=== PATIENT | male | born 1960 | race Caucasian/White ===

== ENCOUNTER 2024-08-02 22:59 | Inpatient (IN) | payer MEDICARE ==
[~2024-08-02] VITALS: Ht 172.7 cm; Wt 79.2 kg
[~2024-08-02 22:59] MED LIST: CARV3.1240 PO; DAPA1TAB4 PO; DICL50TA2 PO; FAMO20TA10 PO; METO-281 PO; SACU1TAB7 PO; TAMS0.4C39 PO
--- NOTE | 2024-08-02 23:14 | ED.PDOC ---
History of Present Illness HPI Comments 64-year-old male brought in by EMS presents with a chief complaint of generalized weakness times onset today. EMS reports that this is the 2nd call to patients home today. Patient reports that he suffers from anxiety and panic attacks when he starts to feel weakness. Patient states that he self medicates with marijuana in the usually helps him however he reports that it has not been helping him. Patient states that he lost his 6 months ago in the has been a trigger for his anxiety and panic attacks. Patient has no stated complaints at this time. Vital signs were stable at arrival. Time Seen by MD: 23:02 Reviewed Notes: Nurses Notes, Medications, Allergies Allergies: Coded Allergies: NO KNOWN ALLERGIES (Unverified , 01/07/15) Home Meds Active Scripts Famotidine (PEPCID TABLET) 20 Mg Tb, 1 TAB PO BID for 30 Days, #60 TAB 5 Refills Prov:AMY TEIXEIRA MD 04/16/24 Metoclopramide Hcl (Reglan) 10 Mg Tab, 10 MG PO TID PRN for 10 Days, #30 TAB Prov:AMY TEIXEIRA MD 04/16/24 Diclofenac Potassium (Diclofenac Potassium) 50 Mg Tab, 1 TAB PO TIDP for 10 Days, #30 TAB Prov:AMY TEIXEIRA MD 04/16/24 Information Source: Patient, Emergency Med Personnel Mode of Arrival: EMS Severity: Moderate Timing: Hours Duration: Since onset Prehospital treatment: None Past Medical History PAST MEDICAL HISTORY: CHF, DM, HTN Surgical History: Denies all surgeries Family History Family History: Unobtainable Social History Smoker: Non-Smoker Alcohol: Denies ETOH Use Drugs: Denies Drug Use Lives In: Home Constitutional: reports: fatigue, weakness; denies: chills, diaphoresis, fever, malaise, sweats, others EENTM: denies: blurred vision, double vision, ear bleeding, ear discharge, ear drainage, ear pain, ear ringing, eye pain, eye redness, hearing loss, mouth pain, mouth swelling, nasal discharge, nose bleeding, nose congestion, nose pain, photophobia, tearing, throat pain, throat swelling, voice changes, others Respiratory: denies: cough, hemoptysis, orthopnea, SOB at rest, shortness of breath, SOB with excertion, stridor, wheezing, others Cardiovascular: denies: chest pain, dizzy spells, diaphoresis, Dyspnea on exertion, edema, irregular heart beat, left arm pain, lightheadedness, palpitations, PND, syncope, others Gastrointestinal: denies: abdomen distended, abdominal pain, blood streaked bowels, constipated, diarrhea, dysphagia, difficulty swallowing, hematemesis, melena, nausea, poor appetite, poor fluid intake, rectal bleeding, rectal pain, vomiting, others Genitourinary: denies: burning, dysuria, flank pain, frequency, hematuria, incontinence, penile discharge, penile sore, pain, testicle pain, testicle swelling, urgency, others Neurological: denies: dizziness, fainting, headache, left sided numbness, left sided weakness, numbness, paresthesia, pre-existing deficit, right sided numbness, right sided weakness, seizure, speech problems, tingling, tremors, weakness, others Musculoskeletal: denies: back pain, gout, joint pain, joint swelling, muscle pain, muscle stiffness, neck pain, others Integumetry: denies: bruises, change in color, change in hair/nails, dryness, laceration, lesions, lumps, rash, wounds, others Allergic/Immunocompromised: denies: Difficulty Healing, Frequent Infections, Hives, Itching, others Hematologic/Lymphatic: denies: anemia, blood clots, easy bleeding, easy bruising, swollen glands, others Endocrine: denies: excessive hunger, excessive sweating, excessive thirst, excessive urination, flushing, intolerance to cold, intolerance to heat, unexplained weight gain, unexplained weight loss, others Psychiatric: reports: anxiety; denies: bipolar disorder, depression, hopeless, panic disorder, schizophrenia, sleepless, suicidal, others All Other Systems: Reviewed and Negative Physical Exam General Appearance: Moderate Distress (Patient appears to be in mild distress due to anxiety and general illness. Patient appears to be in poor overall health.), Normal HEENT: Normal ENT Inspection, Pharynx Normal, TMs Normal Neck: Full Range of Motion, Non-Tender, Normal, Normal Inspection Respiratory: Chest Non-Tender, Lungs Clear, No Accessory Muscle Use, No Respiratory Distress, Normal Breath Sounds Cardiovascular: No Edema, No JVD, No Murmur, No Gallop, Normal Peripheral Pulses, Regular Rate/Rhythm Breast Exam: Deferred Gastrointestinal: No Pulsatile Mass, Normal Bowel Sounds, Soft Genitalia: Deferred Pelvic: Deferred Rectal: Deferred Extremities: No calf tenderness, Normal capillary refill, Normal range of motion, Non-tender, No pedal edema Musculoskeletal : Apperance: Normal Neurologic: Alert, No Motor Deficits, No Sensory Deficits Cerebellar Function: Normal Reflexes: Normal Skin: Dry, Normal Color, Warm Lymphatic: No Adenopathy Was a procedure done? Was a procedure done?: No Differential Dx Considerations may include: Sepsis, electrolyte abnormality, anxiety, UTI, acute coronary syndrome X-Ray, Labs, Meds, VS Vital Signs Date Time Temp Pulse Resp B/P (MAP) Pulse Ox O2 Delivery O2 Flow Rate FiO2 08/02/24 23:20 98.6 88 16 119/66 (83) 96 98.6 08/02/24 23:20 88 16 96 Room Air* 0 21 08/02/24 23:00 98.0 92 20 118/78 (91) 98 98.0 Lab Test 08/02/24 23:25 Range/Units White Blood Count 28.0 H 4.4-10.8 10^3/uL Red Blood Count 4.94 4.5-5.90 10^6/uL Hemoglobin 14.9 13.5-17.5 g/dL Hematocrit 43.0 41.0-53.0 % Mean Corpuscular Volume 87.1 80.0-100.0 fL Mean Corpuscular Hemoglobin 30.1 28.0-32.0 pg Mean Corpuscular Hemoglobin Concent 34.6 32.0-36.0 g/dL Red Cell Distribution Width 13.3 11.8-14.3 % Platelet Count 310 140-450 10^3/uL Mean Platelet Volume 8.0 6.9-10.8 fL Neutrophils (%) (Auto) 37.0-80.0 % Lymphocytes (%) (Auto) 10.0-50.0 % Monocytes (%) (Auto) 0.0-12.0 % Basophils (%) (Auto) 0.0-2.0 % Neutrophils # (Auto) 1.6-8.6 10 ^3/uL Lymphocytes # (Auto) 0.4-5.4 10 ^3/uL Monocytes # (Auto) 0-1.3 10 ^3/uL Differential Total Cells Counted 100.0 100 Neutrophils % (Manual) 89 H 37.0-80.0 Band Neutrophils % (Manual) 1 Lymphocytes % (Manual) 7 L 10.0-50.0 Monocytes % (Manual) 3 0-12 Eosinophils % (Manual) 0 0-7 Basophils % (Manual) 0 0.0-2.0 Metamyelocytes % (manual) 0 Myelocytes % (Manual) 0 Promyelocytes % (Manual) 0 Blast Cells % (Manual) 0 Reactive Lymphocytes 0 Platelet Estimate Adequate Sodium Level 137 136-145 mmol/L Potassium Level 4.5 3.5-5.1 mmol/L Chloride Level 100 98-107 mmol/L Carbon Dioxide Level 26 20-31 mmol/L Anion Gap 11 5-15 Blood Urea Nitrogen 12 9-23 mg/dL Creatinine 1.16 0.700-1.30 mg/dL Glomerular Filtration Rate Calc 69 >90 mL/min BUN/Creatinine Ratio 10.3 10.0-20.0 Serum Glucose 110 H 74-106 mg/dL Calcium Level 9.5 8.7-10.4 mg/dL Troponin I High Sensitivity 33 </=54 ng/L Current Medications Medications (Trade) Dose Ordered Sig/Cady Route Start Time Stop Time Status Last Admin Alprazolam (Xanax Tablet) 1 mg ONCE ONCE PO 08/02/24 23:15 08/02/24 23:16 DC 08/02/24 23:25 X-Ray, Labs, Meds, VS Comment All resulted laboratories were reviewed by me personally. Urine was pending at time of this note. Patient's laboratories [place] [id number]. Patient's anxiety was difficult to manage while at the facility. Patient will be admitted for IV antibiotics to address his leukocytosis as well as possible tele psych evaluation to address his depression and anxiety. Time of 1ST Reevaluation: 00:53 Reevaluation 1ST: Unchanged Consultation: PCP, Psychiatry Patient Education/Counseling: Diagnosis, Treatment, Prognosis Family Education/Counseling: Diagnosis, Treatment, No Family Present Departure 1 Departure Time of Disposition: 00:54 Impression: Primary Impression: Leukocytosis Additional Impression: Anxiety Disposition: 09 ADMITTED INPATIENT Condition: Fair Discharged With: Self Critical Care Note Critical Care Time?: No Stability Stability form required: No Heart Score Heart Score: Heart Score Response (Comments) Value History N/A 0 EKG N/A 0 Age N/A 0 Risk Factors N/A 0 Troponin N/A 0 Total 0 I personally scribed for MAGNUS GENTILE PAC ([email or web address]) on 08/02/24 at 23:14. Elect ronically submitted by Nahid Whitehead ([email or web address]). MAGNUS GENTILE PAC Aug 02, 2024 23:14
[2024-08-02 23:20] VITALS: PULSE 88; RESP 16; O2SAT 96
[2024-08-02] MEDS: ALPRAZolam 0.5 MG TAB PO ONE (23:25)
[2024-08-02 23:59] LABS: Hemoglobin 14.9 g/dL (13.5-17.5); Mean Corpuscular Hemoglobin 30.1 pg (28.0-32.0); Mean Corpuscular Hgb Conc. 34.6 g/dL (32.0-36.0); Mean Corpuscular Volume 87.1 fL (80.0-100.0); Platelet Count (auto) 310 10^3/uL (140-450); Red Blood Cells 4.94 10^6/uL (4.5-5.90); Red Cell Distribution Width 13.3 % (11.8-14.3)
[2024-08-03] LABS: Basophils % (manual) 0 (0.0-2.0); Blast Cells 0; Eosinophils % (manual) 0 (0-7); Metamyelocytes % 0; Myelocytes % 0; Promyelocytes % 0; Reactive Lymphocytes 0
[2024-08-03 00:01] LABS: Chloride 100 mmol/L (98-107); Potassium 4.5 mmol/L (3.5-5.1); Sodium 137 mmol/L (136-145)
[2024-08-03 00:02] LABS: Anion Gap 11 (5-15); Calcium 9.5 mg/dL (8.7-10.4); Carbon Dioxide 26 mmol/L (20-31)
[2024-08-03 00:07] LABS: BUN/Creatinine Ratio 10.3 (10.0-20.0); Blood Urea Nitrogen 12 mg/dL (9-23)
[2024-08-03 00:09] LABS: Glucose 110 mg/dL (74-106)
[2024-08-03 00:44] LABS: Band Neutrophils % (manual) 1; Lymphocytes % (manual) 7 (10.0-50.0); Monocytes % (manual) 3 (0-12); Platelet Estimate Adequate
[2024-08-03] MEDS: cefTRIAXone 1GM/50ML D5W 50 ML IV ONE (01:48)
[2024-08-03 02:05] VITALS: PULSE 87; RESP 33; O2SAT 96
[2024-08-03] MEDS: LORazepam 2MG/ML-1ML VIAL IM ONE (02:26)
[2024-08-03 07:30] VITALS: PULSE 87; RESP 20; O2SAT 96
[2024-08-03] MEDS ORDERED: ONDANSETRON HCL 4 MG/2 ML VIAL IV PRN (07:45)
[2024-08-03] MEDS ORDERED: MORPHINE SULFATE INJ 2 MG/ml SYRG IV PRN (07:45)
--- NOTE | 2024-08-03 07:47 | DVH ---
XY CHEST PORTABLE, HISTORY: Leukocytosis COMPARISON: XY CHEST PORTABLE on DOS: 04/16/24 XY CHEST PORTABLE on DOS: 04/16/24 TECHNICAL DATA: 1 view of the chest was obtained. FINDINGS: Lines and tubes: None Cardiomediastinal silhouette: normal Pulmonary vasculature: normal Lung expansion: low Lung airspace: normal Lung interstitium: normal Pleura: normal Pneumothorax: no Bones: Unremarkable Other: no IMPRESSION: No acute intrathoracic abnormality.
[2024-08-03 08:21] LABS: Urine Bacteria None Seen /hpf (None Seen)
[2024-08-03] MEDS ORDERED: DEXTROSE (50%) 50ML SYRG IV PRN (08:45)
[2024-08-03] MEDS ORDERED: FAMO-12 PO (08:46)
[2024-08-03 08:48] LABS: Urine Blood Negative /uL (Negative); Urine Clarity Clear (Clear); Urine Color Yellow (Yellow); Urine Protein, UAD TRACE (Negative); Urine Specific Gravity 1.026 (1.001-1.035); Urine Squamous Epithelial Cell None Seen /hpf (<5); Urine Urobilinogen 2 mg/dL (Negative); Urine WBC 2 /HPF (0-3)
--- NOTE | 2024-08-03 08:53 | DVHHP2 ---
History of Present Illness Reason for Visit: Generalized weakness History of Present Illness This 64-year-old male with past medical history of CHF, diabetes, hypertension, presents to the ED via EMS with a chief complaint of generalized weakness. The patient reports have been stress, anxious, and depressed for the past six months after spouse . The patient states has not been eating due to no appetite. The patient denies dizziness, chest pain, shortness of breath, abdominal pain, or other acute symptoms. Past Medical History As stated in HPI Past Surgical History Denies Family History Reviewed, non-contributory to the management of this case. Past Social History The patient lives at home, denies smoking, alcohol or illicit drugs abuse. Review of Systems Constitutional: Yes: Weakness; No: Fever, Chills, Sweats, Malaise, Other Eyes: No: Pain, Vision change, Conjunctivae inflammation, Eyelid inflammation, Other, Redness ENT: No: Ear pain, Ear discharge, Nose pain, Nose discharge, Nose congestion, Mouth pain, Mouth swelling, Throat pain, Throat swelling, Other Respiratory: No: Cough, Dry, Shortness of breath, SOB with excertion, Wheezing, Hemoptysis, Pleuritic Pain, Sputum, Wheezing, Other Cardiovascular: No: Chest Pain, Palpitations, Orthopnea, Paroxysmal Noc. Dyspnea, Edema, Lt Headedness, Other Gastrointestinal: No: Nausea, Vomiting, Abdominal Pain, Diarrhea, Constipation, Melena, Hematochezia, Other Genitourinary: No Dysuria, No Frequency, No Incontinence, No Hematuria, No Retention, No Other Musculoskeletal: No: other, neck pain, shoulder pain, arm pain, back pain, hand pain, leg pain, foot pain Neurological: No: Weakness, Numbness, Incoordination, Change in speech, Confusion, Seizures, Other Allergies: Coded Allergies: NO KNOWN ALLERGIES (Unverified , 01/07/15) Medications Current Medications Medications Dose Ordered Sig/Cady Route Start Time Stop Time Status Last Admin Dose Admin Acetaminophen/ Hydrocodone Bitart 1 tab Q4HP PRN PO 08/03/24 07:45 Ondansetron HCl 4 mg Q4HP PRN IV 08/03/24 07:45 Enoxaparin Sodium 30 mg DAILY SC 08/03/24 10:00 Acetaminophen 650 mg Q6HP PRN PO 08/03/24 07:45 Morphine Sulfate 2 mg Q4HPRN PRN IV 08/03/24 07:45 Exam Vital Signs Vital Signs Date Time Temp Pulse Resp B/P (MAP) Pulse Ox O2 Delivery O2 Flow Rate FiO2 08/03/24 08:00 85 08/03/24 07:30 20 96 Nasal Cannula* 2 28 08/03/24 07:30 99.0 119/61 (80) 99.0 General Appearance: Alert, Oriented X3, Cooperative, mild distress HEENT: Atraumatic, PERRLA, Mucous membr. moist/pink Respiratory: Clear to auscultation, Normal air movement Cardiovascular: Regular rate, Normal S1, Normal S2 Abdominal: Normal bowel sounds, Soft, No tenderness Extremities: No clubbing, No cyanosis, No edema, Normal pulses Skin: No rashes, No breakdown, No significant lesion Neuro: Normal speech, Normal tone Psych/Mental Status: Mental status NL Labs/Xrays Labs Test 08/03/24 08:15 08/03/24 01:14 08/02/24 23:25 Range/Units Lactic Acid Level 1.4 0.4-2.0 mmol/L White Blood Count 28.0 H 4.4-10.8 10^3/uL Red Blood Count 4.94 4.5-5.90 10^6/uL Hemoglobin 14.9 13.5-17.5 g/dL Hematocrit 43.0 41.0-53.0 % Mean Corpuscular Volume 87.1 80.0-100.0 fL Mean Corpuscular Hemoglobin 30.1 28.0-32.0 pg Mean Corpuscular Hemoglobin Concent 34.6 32.0-36.0 g/dL Red Cell Distribution Width 13.3 11.8-14.3 % Platelet Count 310 140-450 10^3/uL Mean Platelet Volume 8.0 6.9-10.8 fL Neutrophils (%) (Auto) 37.0-80.0 % Lymphocytes (%) (Auto) 10.0-50.0 % Monocytes (%) (Auto) 0.0-12.0 % Basophils (%) (Auto) 0.0-2.0 % Neutrophils # (Auto) 1.6-8.6 10 ^3/uL Lymphocytes # (Auto) 0.4-5.4 10 ^3/uL Monocytes # (Auto) 0-1.3 10 ^3/uL Differential Total Cells Counted 100.0 100 Neutrophils % (Manual) 89 H 37.0-80.0 Band Neutrophils % (Manual) 1 Lymphocytes % (Manual) 7 L 10.0-50.0 Monocytes % (Manual) 3 0-12 Eosinophils % (Manual) 0 0-7 Basophils % (Manual) 0 0.0-2.0 Metamyelocytes % (manual) 0 Myelocytes % (Manual) 0 Promyelocytes % (Manual) 0 Blast Cells % (Manual) 0 Reactive Lymphocytes 0 Platelet Estimate Adequate Sodium Level 137 136-145 mmol/L Potassium Level 4.5 3.5-5.1 mmol/L Chloride Level 100 98-107 mmol/L Carbon Dioxide Level 26 20-31 mmol/L Anion Gap 11 5-15 Blood Urea Nitrogen 12 9-23 mg/dL Creatinine 1.16 0.700-1.30 mg/dL Glomerular Filtration Rate Calc 69 >90 mL/min BUN/Creatinine Ratio 10.3 10.0-20.0 Serum Glucose 110 H 74-106 mg/dL Calcium Level 9.5 8.7-10.4 mg/dL Troponin I High Sensitivity 33 </=54 ng/L PROCEDURE(s): CXRP - CHEST PORTABLE REASON: Leukocytosis ORDER NUMBER(s): [id number], ACCESSION NUMBER(s): [id number] XY CHEST PORTABLE, HISTORY: Leukocytosis COMPARISON: XY CHEST PORTABLE on DOS: 04/16/24 XY CHEST PORTABLE on DOS: 04/16/24 TECHNICAL DATA: 1 view of the chest was obtained. FINDINGS: Lines and tubes: None Cardiomediastinal silhouette: normal Pulmonary vasculature: normal Lung expansion: low Lung airspace: normal Lung interstitium: normal Pleura: normal Pneumothorax: no Bones: Unremarkable Other: no IMPRESSION: No acute intrathoracic abnormality. 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 Tele Psych evaluation Monitor # diabetes type 2 Check A1c Farxiga Insulin sliding scale DVT prophylaxis Medical plan discussed with patient and RN Plan discussed with: Patient My Orders Orders - BANDAR DOMINGUEZ [employer] Procedure Category Date Status Time Urinalysis LAB 08/03/24 In Process 07:10 Communication Order ORDERS 08/03/24 Transmitted 07:10 Urine Bacterial NELSON 08/03/24 Logged Culture 07:10 Chest Portable XY 08/03/24 Resulted 07:10 Admit ADMIT 08/03/24 Transmitted 07:36 Code Status CODE 08/03/24 Transmitted 07:36 Hydrocodone-Acet PHA 08/03/24 In Process 5/325mg Tab ([place] 07:45 Ondansetron Hcl PHA 08/03/24 In Process (Zofran) 07:45 Fall Risk Precautions RAYRAY 08/03/[address] 07:36 Complete Blood Count LAB 08/04/24 Verified 04:00 Comprehensive LAB 08/04/24 Verified Metabolic Panel 04:00 Cardiac DIET 08/03/24 Transmitted Diet-2gna,Lofat,Lochol Breakfast Condition: Fair RAYRAY 08/03/24 In Process 07:36 Enoxaparin Sodium PHA 08/03/24 In Process (Lovenox) 10:00 Acetaminophen Tablet PHA 08/03/24 In Process (Tylenol Tablet) 07:45 Morphine Sulfate PHA 08/03/24 In Process Injection 07:45 Date of Service: Aug 03, 2024 Billing Provider: BANDAR DOMINGUEZ Common Visit Codes: [id number] INP/OBS CARE (HIGH) BANDAR DOMINGUEZ Aug 03, 2024 08:52
[2024-08-03 09:28] LABS: Cannabinoid Screen, Urine Pos (NEGATIVE)
[2024-08-03 09:30] LABS: LDL Cholesterol 52 mg/dL (< 100); Triglycerides 90 mg/dL (< 150)
[2024-08-03 09:32] LABS: Cholesterol 105 mg/dL (< 200); HDL Cholesterol 36 mg/dL (40-59)
[2024-08-03 09:32] LABS: Amphetamine Screen, Urine Neg (NEGATIVE); Barbiturate Scree,Urine Neg (NEGATIVE); Benzodiazephine Screen, Urine Pos (NEGATIVE); Cocaine Screen, Urine Neg (NEGATIVE); Opiate Scree,Urine Neg (NEGATIVE); Phencyclidine Screen, Urine Neg (NEGATIVE)
[2024-08-03 10:36] VITALS: BP 112/81; PULSE 76; RESP 18; TEMP 97.7; O2SAT 97
[2024-08-03] MEDS: SODIUM CHLORIDE 0.9% 2,050 ML IV ONE (10:54)
[2024-08-03] MEDS: cefTRIAXone 1GM/50ML D5W 50 ML IV SCH (10:54)
[2024-08-03] MEDS: FAMOTIDINE 20 MG TAB PO SCH (10:55)
[2024-08-03] MEDS: ENOXAPARIN SOD 30 MG/0.3 ML SYRINGE SC SCH (10:55)
[2024-08-03] MEDS: HYDROcodone-ACET 5/325MG TAB PO PRN (10:56)
[2024-08-03] MEDS: ACCU-CHEK COMFORT CURVE STRIP VI SCH (11:12)
[2024-08-03] MEDS: InsuLIN REG 1unit/0.01ml Soln (100units/ml) SC SCH (11:12)
[2024-08-03 11:53] VITALS: PULSE 78; RESP 18; O2SAT 97
--- NOTE | 2024-08-03 14:59 | DVHSR ---
APPROVED REPORT EXAM: LIMITED Two-dimensional and M-mode echocardiogram with Doppler and color Doppler. Blood Pressure: 119/61 mmHg INDICATION CHF RISK FACTORS Height: 5' 8", Weight: 178 DIMENSIONS LVDd4.4 (3.8-5.7cm)LA (2D)3.7 (1.9-4.0cm)Aortic Root2.7 (2.0-3.7cm) LVDs2.7 (2.5-4.0cm)LA (MM) (1.9-4.0cm)Aortic Cusp Exc2.0 (1.5-2.0cm) EF (%) 68.0 (55-70%)Rt. Atrium4.1 (1.9-4.0cm)Asc. Aorta cm IVSd1.1 (0.7-1.1cm)RV (D) (1.8-2.4cm) PWd1.1 (0.7-1.1cm) Mitral Valve MitralMitral Stenosis E wave0.70m/sMV Mean GR.mmHg A wave1.10m/sMV Peak GR.mmHg E/A ratio0.62D MVAcm2 Aortic Valve Aortic ValveAortic Stenosis V11.00m/Eileen Mean GR.6mmHg V21.60m/Eileen Peak GR.11mmHg LVOT Diameter2.2 (1.8-2.4cm)Doppler AVA2.37cm2 Tricuspid Valve TR Velocity2.10m/s [id number] Other Information Quality : Technically LimitedRhythm : Technically limited study due to patient very anxious and moving. Conclusion Technically good study. Sinus rhythm. Right atrial and right ventricular enlargement. Mild dilation of the sinuses of Valsalva. Mild aortic sclerosis. Left ventricular function is preserved at 60% with normal RV function. Dopplers unremarkable. Mild TR. No pericardial effusion masses or vegetations.
[2024-08-03 16:43] VITALS: BP 126/77; PULSE 68; RESP 17; TEMP 98; O2SAT 98
[2024-08-03 21:00] VITALS: BP 145/74; PULSE 65; RESP 16; TEMP 97.9; O2SAT 96
[2024-08-04] VITALS (8 sets, daily range): BP systolic 121–155; BP diastolic 71–81; PULSE 54–66; RESP 14–19; TEMP 97.5–98.6; O2SAT 97–99
[2024-08-04 07:01] LABS: Basophils # (auto) 0 10 ^3/uL (0-0.2); Basophils % (auto) 0.4 % (0.0-2.0); Eosinophils # (auto) 0 10 ^3/uL (0-0.8); Hematocrit 41.4 % (41.0-53.0); Hemoglobin 14.3 g/dL (13.5-17.5); Lymphocytes # (auto) 0.9 10 ^3/uL (0.4-5.4); Lymphocytes % (auto) 7.9 % (10.0-50.0); Mean Corpuscular Hemoglobin 30.3 pg (28.0-32.0); Mean Corpuscular Hgb Conc. 34.5 g/dL (32.0-36.0); Mean Corpuscular Volume 87.6 fL (80.0-100.0); Monocytes # (auto) 0.9 10 ^3/uL (0-1.3); Monocytes % (auto) 8.1 % (0.0-12.0); Neutrophils # (auto) 9.5 10 ^3/uL (1.6-8.6); Neutrophils % (auto) 83.6 % (37.0-80.0); Platelet Count (auto) 245 10^3/uL (140-450); Red Blood Cells 4.72 10^6/uL (4.5-5.90); Red Cell Distribution Width 13.2 % (11.8-14.3); White Blood Cell 11.4 10^3/uL (4.4-10.8)
[2024-08-04 07:22] LABS: Alanine Aminotransferase 13 U/L (7-40); Albumin 4.2 g/dL (3.2-4.8); Alkaline Phosphatase 105 U/L (46-116); Anion Gap 8 (5-15); Aspartate Aminotransferase 18 U/L (13-40); BUN/Creatinine Ratio 22.1 (10.0-20.0); Blood Urea Nitrogen 19 mg/dL (9-23); Calcium 9.5 mg/dL (8.7-10.4); Carbon Dioxide 27 mmol/L (20-31); Total Protein 6.9 g/dL (5.7-8.2)
[2024-08-04 07:23] LABS: Bilirubin, Total 0.5 mg/dL (0.2-1.0)
[2024-08-04 07:25] LABS: Chloride 106 mmol/L (98-107); Glucose 116 mg/dL (74-106); Potassium 4.4 mmol/L (3.5-5.1); Sodium 141 mmol/L (136-145)
--- NOTE | 2024-08-04 11:39 | DVHPN2 ---
Subjective Patient continues to report having anxiety and generalized weakness. Reviewed: Care Plan, H&P, Labs, Medications, Previous Orders, Radiology Changes from previous H/P or p: No Changes General: Per HPI Eyes: No Pain, No Vision change, No Conjunctivae inflammation, No Eyelid inflammation, No Other, No Redness ENT: No Ear pain, No Ear discharge, No Nose pain, No Nose discharge, No Nose congestion, No Mouth pain, No Mouth swelling, No Throat pain, No Throat swelling, No Other Cardiovascular: No Chest Pain, No Palpitations, No Orthopnea, No Paroxysmal Noc. Dyspnea, No Edema, No Lt Headedness, No Other Respiratory: No Cough, No Dry, No Shortness of breath, No SOB with excertion, No Wheezing, No Hemoptysis, No Pleuritic Pain, No Sputum, No Other Gastrointestinal: No Nausea, No Vomiting, No Abdominal Pain, No Diarrhea, No Constipation, No Melena, No Hematochezia, No Other Genitourinary: No Dysuria, No Frequency, No Incontinence, No Hematuria, No Retention, No Other Musculoskeletal: No other, No neck pain, No shoulder pain, No arm pain, No back pain, No hand pain, No leg pain, No foot pain Objective Vitals Vital Signs Date Time Temp Pulse Resp B/P (MAP) Pulse Ox O2 Delivery O2 Flow Rate FiO2 08/04/24 09:00 98.3 66 18 149/75 (99) 98 98.3 08/03/24 11:53 Room Air* 0 21 Intake/Output Intake and Output 08/04/24 07:00 Intake Total 850 ml Output Total 980 ml Balance -130 ml Intake Oral 850 ml Output Urine Total 980 ml General Appearance: Alert, Oriented X3, Cooperative, No acute distress, mild distress HEENT: Atraumatic, PERRLA Cardiovascular: Normal S1, Normal S2 Abdomen: Normal bowel sounds, Soft, No tenderness, No hepatospenomegaly Musculoskeletal: Normal sensory function, Normal motor function Skin: Dry, Intact Psych/Mental Status: Mental status NL, Mood NL Medications Current Medications Medications Dose Ordered Sig/Cady Route Start Time Stop Time Status Last Admin Dose Admin Acetaminophen/ Hydrocodone Bitart 1 tab Q4HP PRN PO 08/03/24 07:45 08/04/24 09:19 1 TAB Ondansetron HCl 4 mg Q4HP PRN IV 08/03/24 07:45 Enoxaparin Sodium 30 mg DAILY SC 08/03/24 10:00 08/04/24 09:17 30 MG Acetaminophen 650 mg Q6HP PRN PO 08/03/24 07:45 Morphine Sulfate 2 mg Q4HPRN PRN IV 08/03/24 07:45 Ceftriaxone Sodium 50 ml @ 100 mls/hr DAILY@09 IV 08/03/24 09:00 08/04/24 09:16 100 MLS/HR Diagnostic Test (Pha) 1 strip ACHS 08/03/24 11:30 08/04/24 04:49 1 STRIP Insulin Human Regular ACHS SC 08/03/24 11:30 Dextrose 50 ml UD PRN IV 08/03/24 08:45 Famotidine 20 mg BID PO 08/03/24 10:00 08/04/24 09:32 20 MG Laboratory Results Laboratory Tests 08/04/24 06:03 Chemistry Test 08/04/24 06:03 Albumin 4.2 g/dL (3.2-4.8) Calcium Level 9.5 mg/dL (8.7-10.4) Total Protein 6.9 g/dL (5.7-8.2) LFT Test 08/04/24 06:03 Alanine Aminotransferase (ALT) 13 U/L (7-40) Alkaline Phosphatase 105 U/L (46-116) Aspartate Amino Transferase (AST) 18 U/L (13-40) Total Bilirubin 0.5 mg/dL (0.2-1.0) Urinalysis Test 08/03/24 08:15 Urine Color Yellow (Yellow) Urine Clarity Clear (Clear) Urine pH 6.0 (5.0-9.0) Urine Specific [place] 1.026 (1.001-1.035) Urine Protein Trace (Negative) H Urine Ketones Negative (Negative) Urine Blood Negative /uL (Negative) Urine Nitrite Negative (Negative) Urine Bilirubin Negative (Negative) Urine Urobilinogen 2 mg/dL (Negative) H Urine Leukocyte Esterase Negative /uL (Negative) Urine RBC 2 /hpf (0 - 3) Urine Microscopic WBC 2 /HPF (0-3) Urine Squamous Epithelial Cells None seen /hpf (<5) Urine Bacteria None seen /hpf (None Seen) Urine Glucose Normal mg/dL (Normal) Microbiology Microbiology Date/Time Source Procedure Growth Status 08/03/24 08:15 Voided Urine Urine Culture - Preliminary Resulted 08/03/24 01:43 Blood Blood Culture - Preliminary NO GROWTH AFTER 24 HOURS OF INCUBATION. Resulted Labs and/or images reviewed: Labs reviewed by me, Image(s) reviewed by me Assessment/Plan Assessment/Plan Impression: -leukocytosis, rule out sepsis -anxiety disorder -marijuana use -rule out major depressive disorder -medication noncompliance -history of primary hypertension Plan: -continue IV antibiotic therapy -gentle IV hydration -kelly cultures -PUD, DVT prophylaxis -psychiatry consultation -repeat labs in a.m. Total time spent with patient discussing and formulating plan of care: 35 minutes. This medical document was created using an electronic medical record system with [employer] dictation system. Although this document has been carefully reviewed, there may still be some phonetic and typographical errors. These areas are purely typographical due to imperfections of the software programs, and do not reflect any compromise in the patient's medical care. Plan discussed with: Patient, Other (RN) Date of Service: Aug 04, 2024 Billing Provider: ALLAN HUNTER NP Common Visit Codes: [id number] INP/OBS CARE(HIGH) ALLAN HUNTER NP Aug 04, 2024 11:39
--- NOTE | 2024-08-04 14:22 | DVHINCON2 ---
Date of Service if different f: Aug 04, 2024 Time of Service: 13:56 Consultation ([facility]) Consulting Physician: BACILIO LEIGH MD Labs Laboratory Tests Test 08/02/24 23:25 08/03/24 01:14 08/03/24 08:15 08/03/24 08:51 Differential Total Cells Counted 100.0 (100) Neutrophils % (Manual) 89 (37.0-80.0) Band Neutrophils % (Manual) 1 Lymphocytes % (Manual) 7 (10.0-50.0) Monocytes % (Manual) 3 (0-12) Eosinophils % (Manual) 0 (0-7) Basophils % (Manual) 0 (0.0-2.0) Metamyelocytes % (manual) 0 Myelocytes % (Manual) 0 Promyelocytes % (Manual) 0 Blast Cells % (Manual) 0 Reactive Lymphocytes 0 Platelet Estimate Adequate Troponin I High Sensitivity 33 ng/L (</=54) Lactic Acid Level 1.4 mmol/L (0.4-2.0) Urine Color Yellow (Yellow) Urine Clarity Clear (Clear) Urine pH 6.0 (5.0-9.0) Urine Specific [facility] 1.026 (1.001-1.035) Urine Protein Trace (Negative) Urine Ketones Negative (Negative) Urine Blood Negative /uL (Negative) Urine Nitrite Negative (Negative) Urine Bilirubin Negative (Negative) Urine Urobilinogen 2 mg/dL (Negative) Urine Leukocyte Esterase Negative /uL (Negative) Urine RBC 2 /hpf (0 - 3) Urine Microscopic WBC 2 /HPF (0-3) Urine Squamous Epithelial Cells None seen /hpf (<5) Urine Bacteria None seen /hpf (None Seen) Urine Glucose Normal mg/dL (Normal) Urine Opiates Screen Neg (NEGATIVE) Urine Fentanyl Screen Neg (NEGATIVE) Urine Barbiturates Screen Neg (NEGATIVE) Urine Phencyclidine Screen Neg (NEGATIVE) Urine Amphetamines Screen Neg (NEGATIVE) Urine Benzodiazepines Screen Pos (NEGATIVE) Urine Cocaine Screen Neg (NEGATIVE) Urine Cannabinoids Screen Pos (NEGATIVE) Hemoglobin A1c 4.9 % A1C (<5.7) Triglycerides Level 90 mg/dL (< 150) Cholesterol Level 105 mg/dL (< 200) LDL Cholesterol 52 mg/dL (< 100) HDL Cholesterol 36 mg/dL (40-59) Thyroid Stimulating Hormone (TSH) 0.41 uIU/mL (0.55-4.78) Test 08/04/24 06:03 08/04/24 11:42 White Blood Count 11.4 10^3/uL (4.4-10.8) Red Blood Count 4.72 10^6/uL (4.5-5.90) Hemoglobin 14.3 g/dL (13.5-17.5) Hematocrit 41.4 % (41.0-53.0) Mean Corpuscular Volume 87.6 fL (80.0-100.0) Mean Corpuscular Hemoglobin 30.3 pg (28.0-32.0) Mean Corpuscular Hemoglobin Concent 34.5 g/dL (32.0-36.0) Red Cell Distribution Width 13.2 % (11.8-14.3) Platelet Count 245 10^3/uL (140-450) Mean Platelet Volume 7.8 fL (6.9-10.8) Neutrophils (%) (Auto) 83.6 % (37.0-80.0) Lymphocytes (%) (Auto) 7.9 % (10.0-50.0) Monocytes (%) (Auto) 8.1 % (0.0-12.0) Eosinophils (%) (Auto) 0.0 % (0.0-7.0) Basophils (%) (Auto) 0.4 % (0.0-2.0) Neutrophils # (Auto) 9.5 10 ^3/uL (1.6-8.6) Lymphocytes # (Auto) 0.9 10 ^3/uL (0.4-5.4) Monocytes # (Auto) 0.9 10 ^3/uL (0-1.3) Eosinophils # (Auto) 0 10 ^3/uL (0-0.8) Basophils # (Auto) 0 10 ^3/uL (0-0.2) Nucleated Red Blood Cells 0.0 % Sodium Level 141 mmol/L (136-145) Potassium Level 4.4 mmol/L (3.5-5.1) Chloride Level 106 mmol/L (98-107) Carbon Dioxide Level 27 mmol/L (20-31) Anion Gap 8 (5-15) Blood Urea Nitrogen 19 mg/dL (9-23) Creatinine 0.86 mg/dL (0.700-1.30) Glomerular Filtration Rate Calc 96 mL/min (>90) BUN/Creatinine Ratio 22.1 (10.0-20.0) Serum Glucose 116 mg/dL (74-106) Calcium Level 9.5 mg/dL (8.7-10.4) Total Bilirubin 0.5 mg/dL (0.2-1.0) Aspartate Amino Transf (AST/SGOT) 18 U/L (13-40) Alanine Aminotransferase (ALT/SGPT) 13 U/L (7-40) Alkaline Phosphatase 105 U/L (46-116) Total Protein 6.9 g/dL (5.7-8.2) Albumin 4.2 g/dL (3.2-4.8) Bedside Glucose 115 mg/dl (70-106) Microbiology Date/Time Source Procedure Growth Status 08/03/24 08:15 Voided Urine Urine Culture - Preliminary Resulted 08/03/24 01:43 Blood Blood Culture - Preliminary NO GROWTH AFTER 24 HOURS OF INCUBATION. Resulted Appearance: Stated age Psychomotor activity: WNL Behavioral: Cooperative Eye contact: Appropriate Speech: WNL Affect: Appropriate, Mood Congruent Mood: Anxious Thought processes: Linear/Goal-directed Thought content: WNL Suicidal ideations: Absent Homicidal ideations: Absent Orientation: Person, Place, Time, Situation Memory intact: Recent Intellect: Average Abstractability: WNL Concentration: Adequate Attention: Adequate Judgement: WNL Insight: Good Vitals Vital Signs Date Time Temp Pulse Resp B/P (MAP) Pulse Ox O2 Delivery O2 Flow Rate FiO2 08/04/24 13:19 98.6 60 18 155/81 (105) 97 98.6 08/03/24 11:53 Room Air* 0 21 Current medications Current Medications Medications Dose Ordered Sig/Cady Route Start Time Stop Time Status Last Admin Dose Admin Acetaminophen/ Hydrocodone Bitart 1 tab Q4HP PRN PO 08/03/24 07:45 08/04/24 09:19 1 TAB Ondansetron HCl 4 mg Q4HP PRN IV 08/03/24 07:45 Enoxaparin Sodium 30 mg DAILY SC 08/03/24 10:00 08/04/24 09:17 30 MG Acetaminophen 650 mg Q6HP PRN PO 08/03/24 07:45 Morphine Sulfate 2 mg Q4HPRN PRN IV 08/03/24 07:45 Ceftriaxone Sodium 50 ml @ 100 mls/hr DAILY@09 IV 08/03/24 09:00 08/04/24 09:16 100 MLS/HR Diagnostic Test (Pha) 1 strip ACHS 08/03/24 11:30 08/04/24 11:30 1 STRIP Insulin Human Regular ACHS SC 08/03/24 11:30 Dextrose 50 ml UD PRN IV 08/03/24 08:45 Famotidine 20 mg BID PO 08/03/24 10:00 08/04/24 09:32 20 MG Treatment plan discussed: With staff Medication adjusted: Yes Labs ordered: No Psychotherapy provided: Yes Type: Voluntary History of Present Illness Reason for Consult : psychiatric evaluation PER H&P: This 64-year-old male with past medical history of CHF, diabetes, hypertension, presents to the ED via EMS with a chief complaint of generalized weakness. The patient reports have been stress, anxious, and depressed for the past six months after spouse . The patient states has not been eating due to no appetite. The patient denies dizziness, chest pain, shortness of breath, abdominal pain, or other acute symptoms. PSYCHIATRIST HPI: The patient was seen and evaluated at [facility] via telepsychiatry platform. 64 yr old male reported that he has been dealing with depression and anxiety since his 's 6 months ago. He reported he overthinks a lot of stuff, has difficulty attending to the moment. he feels like "My body is no in sync." He feels restless. He feels fatigued and agitated often. He sleeps okay and gets around 7 hrs sleep. He has low energy. Low motivation. He says he used to love his motorcycle, but found that he has lost interest in it. He denied having SI/HI/AVH. Past Psychiatric History : No past hospitalization, treatment or suicide attempt. Past Medical History : hypertension Current medications: not taking any medications (because they were over $500 each). NKDA Substance use: alcohol-last drank 07/08/79. Smokes MJ occasionally to help relax at night. Denied use of other substances. Social History : Lives in [place] with four grandchildren and has adopted 3 of them and in process of adopting them. He was 33 yrs and in 2023. 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 He may benefit from starting an SSRI to help reduce anxiety and help with depression. He does not warrant psychiatric hospitalization. Plan: 1. Safety. The patient is a low risk for self harm and may be managed as an outpatient. 2. Legal-voluntary. 3. Medications: Recommend starting Zoloft 50mg daily. Recommend discharging with prescription for thirty days and two refills. 4. Case discussed with DONALD Beltran. 5. Please recontact psychiatry for further follow up or reevaluation. Assessment/Diagnosis/Plan Reviewed: Labs, Medications, Previous Orders, Radiology BACILIO LEIGH MD Aug 04, 2024 13:52
[2024-08-04] MEDS: ACETAMINOPHEN 325 MG TAB PO PRN (18:36)
[2024-08-05] VITALS (8 sets, daily range): BP systolic 136–166; BP diastolic 79–91; PULSE 51–91; RESP 16–19; TEMP 97.6–98.5; O2SAT 95–99
[2024-08-05 07:57] LABS: Basophils # (auto) 0.1 10 ^3/uL (0-0.2); Eosinophils # (auto) 0 10 ^3/uL (0-0.8); Hematocrit 42.2 % (41.0-53.0); Hemoglobin 14.9 g/dL (13.5-17.5); Lymphocytes # (auto) 1.4 10 ^3/uL (0.4-5.4); Lymphocytes % (auto) 15.3 % (10.0-50.0); Mean Corpuscular Hemoglobin 30.6 pg (28.0-32.0); Mean Corpuscular Hgb Conc. 35.4 g/dL (32.0-36.0); Mean Corpuscular Volume 86.5 fL (80.0-100.0); Monocytes # (auto) 0.7 10 ^3/uL (0-1.3); Monocytes % (auto) 7.7 % (0.0-12.0); Neutrophils # (auto) 6.9 10 ^3/uL (1.6-8.6); Nucleated Red Blood Cells % 0.1 %; Platelet Count (auto) 279 10^3/uL (140-450); Red Blood Cells 4.87 10^6/uL (4.5-5.90); White Blood Cell 9.1 10^3/uL (4.4-10.8)
[2024-08-05] MEDS ORDERED: MORPHINE SULFATE INJ 2 MG/ml SYRG IV PRN (12:00)
--- NOTE | 2024-08-05 12:04 | DVHPN2 ---
Progress Note Date Seen: Aug 05, 2024 Medical Necessity Reason Pt with a Central, PICC or Fol: No Subjective Patient reports: No new complaints Review of Systems: HEENT:Normal, CVS:Normal, RESPIRATORY:Normal, GI:Normal, :Normal, MSK:Normal, NEURO:Normal Objective vital signs Vital Sign Date Time Temp Pulse Resp B/P (MAP) Pulse Ox O2 Delivery O2 Flow Rate FiO2 08/05/24 05:00 97.7 51 16 138/79 (98) 98 97.7 08/04/24 20:00 Room Air* 0 21 Total Intake and Output 08/04/24 08/04/24 08/05/24 15:00 23:00 07:00 Intake Total 50 ml 1200 ml 620 ml Output Total 600 ml Balance 50 ml 1200 ml 20 ml medications Current Medications Medications Dose Ordered Sig/Cady Route Start Time Stop Time Status Last Admin Dose Admin Acetaminophen/ Hydrocodone Bitart 1 tab Q4HP PRN PO 08/03/24 07:45 08/05/24 10:17 1 TAB Ondansetron HCl 4 mg Q4HP PRN IV 08/03/24 07:45 Enoxaparin Sodium 30 mg DAILY SC 08/03/24 10:00 08/05/24 08:57 30 MG Acetaminophen 650 mg Q6HP PRN PO 08/03/24 07:45 08/04/24 18:36 650 MG Morphine Sulfate 2 mg Q4HPRN PRN IV 08/03/24 07:45 Ceftriaxone Sodium 50 ml @ 100 mls/hr DAILY@09 IV 08/03/24 09:00 08/05/24 08:57 100 MLS/HR Diagnostic Test (Pha) 1 strip ACHS 08/03/24 11:30 08/05/24 06:15 1 STRIP Insulin Human Regular ACHS SC 08/03/24 11:30 Dextrose 50 ml UD PRN IV 08/03/24 08:45 Famotidine 20 mg BID PO 08/03/24 10:00 08/05/24 08:57 20 MG Examination: GENERAL:Normal, HEENT:Normal, NECK:Normal, LUNGS:Normal, CVS:Normal, ABDOMEN:Normal, MSK:Normal, SKIN:Normal, NEURO:Normal, :Normal laboratory and microbiology Laboratory Tests 08/05/24 07:12 08/04/24 06:03 Test 08/04/24 06:03 Range/Units Serum Glucose 116 H 74-106 mg/dL Microbiology Date/Time Source Procedure Growth Status 08/03/24 17:03 Nose MRSA Screen - Final Complete 08/03/24 08:15 Voided Urine Urine Culture - Preliminary Resulted 08/03/24 01:43 Blood Blood Culture - Preliminary NO GROWTH AFTER 48 HOURS OF INCUBATION. Resulted Problem List/Assessment/Plan Problem List/Assessment/Plan #1 sepsis ?uti: iv rocephin #2 bph: cont meds #3 dm: ssi #4 htn: lisinopril #5 chronic diastolic heart failure #6 tobacco abuse: advised to quit, nicotine patch- time spent 11 mins #7 anxiety/depression; zoloft advance care planning- full code- time spent 19 mins Plan discussed with: Patient My Orders My Orders Orders - MARY JO BANDA MD Procedure Category Date Status Time Morphine Sulfate PHA 08/05/24 Verified Injection 12:00 Sertraline Hcl PHA 08/05/24 Verified (Zoloft) 12:00 Sertraline Hcl PHA 08/06/24 Verified (Zoloft) 10:00 Lisinopril Tablet PHA 08/05/24 Verified (Zestril Tablet) 12:00 Lisinopril Tablet PHA 08/06/24 Verified (Zestril Tablet) 10:00 Discontinue Tele RAYRAY 08/05/24 Verified 11:58 Transfer Orders XFER 08/05/24 Verified 11:58 Nicotine 21mg/24hr PHA 08/05/24 Verified (Nicoderm 21mg/24hr) 12:00 Nicotine 21mg/24hr PHA 08/06/24 Verified (Nicoderm 21mg/24hr) 10:00 Tamsulosin PHA 08/05/24 Verified Hydrochloride (Flomax) 18:00 Basic Metabolic Panel LAB 08/06/24 Verified 06:00 Complete Blood Count LAB 08/06/24 Verified 06:00 Hemoglobin A1c LAB 08/06/24 Verified 06:00 Dietary Evaluation Review Recommendations by RD: Increase Calorie Intake, Protein Supplementation Comments: 1) Initiate Glucerna bid; Encourage optimal PO intake 2) Recommend social services coordinator referral r/t anxiety and depression secondary to recent passing of spouse 3) Follow-up with cardiology 4) Continue to monitor I&O, labs, and skin integrity Expected Outcomes/Goals: 1) appetite and labs to improve 2) diet to advance 3) f/u in 3-5 days Date of Service: Aug 05, 2024 Billing Provider: MARY JO BANDA MD Common Visit Codes: [id number] INP/OBS CARE(HIGH) Secondary Visit Codes: [id number] CHNG SMOKING >10MIN, [id number] CARE PLAN 30 MINUTES MARY JO BANDA MD Aug 05, 2024 12:04
[2024-08-05] MEDS: SERTRALINE HCL 50 MG TAB PO ONE (14:01)
[2024-08-05] MEDS: LISINOPRIL 5 MG TAB PO ONE (14:03)
[2024-08-05] MEDS: NICOTINE 21MG/24 HR TOPICAL PATCH TD ONE (14:03)
[2024-08-05] MEDS: TAMSULOSIN HYDROCHLORIDE 0.4 MG CAP PO SCH (17:55)
[2024-08-05] MEDS: hydrALAZINE HCL 20 MG/ML VL IV PRN (17:56)
[2024-08-05] MEDS: HYDROcodone-ACET 5/325MG TAB PO PRN (18:52)
[2024-08-06 01:00] VITALS: BP 154/94; PULSE 88; RESP 18; TEMP 97.6; O2SAT 97
[2024-08-06 05:00] VITALS: BP 146/89; PULSE 70; RESP 18; TEMP 98; O2SAT 97
[2024-08-06 07:55] LABS: Basophils # (auto) 0.1 10 ^3/uL (0-0.2); Basophils % (auto) 0.5 % (0.0-2.0); Eosinophils # (auto) 0 10 ^3/uL (0-0.8); Hematocrit 42.8 % (41.0-53.0); Hemoglobin 15.3 g/dL (13.5-17.5); Lymphocytes # (auto) 1.6 10 ^3/uL (0.4-5.4); Lymphocytes % (auto) 15.9 % (10.0-50.0); Mean Corpuscular Hemoglobin 30.4 pg (28.0-32.0); Mean Corpuscular Hgb Conc. 35.7 g/dL (32.0-36.0); Monocytes # (auto) 0.7 10 ^3/uL (0-1.3); Monocytes % (auto) 7.1 % (0.0-12.0); Neutrophils # (auto) 7.7 10 ^3/uL (1.6-8.6); Neutrophils % (auto) 76.5 % (37.0-80.0); Nucleated Red Blood Cells % 0.1 %; Platelet Count (auto) 308 10^3/uL (140-450); Red Blood Cells 5.04 10^6/uL (4.5-5.90); Red Cell Distribution Width 12.6 % (11.8-14.3); White Blood Cell 10.1 10^3/uL (4.4-10.8)
[2024-08-06 08:00] VITALS: PULSE 64; RESP 17; O2SAT 97
[2024-08-06 08:03] LABS: Anion Gap 11 (5-15); Carbon Dioxide 22 mmol/L (20-31); Chloride 107 mmol/L (98-107); Potassium 3.7 mmol/L (3.5-5.1); Sodium 140 mmol/L (136-145)
[2024-08-06 08:04] LABS: Calcium 9.4 mg/dL (8.7-10.4)
[2024-08-06 08:09] LABS: BUN/Creatinine Ratio 14.1 (10.0-20.0); Blood Urea Nitrogen 11 mg/dL (9-23); Glucose 104 mg/dL (74-106)
--- NOTE | 2024-08-06 08:49 | DVH ---
INDICATION: chf TECHNIQUE: Frontal view of the chest. COMPARISON: XY CHEST PORTABLE on DOS: 08/03/24, XY CHEST PORTABLE on DOS: 04/16/24 FINDINGS: The heart and mediastinal contours are grossly unremarkable. There is no evidence of pleural diseas e. The lungs are clear. The bony structures of the chest are intact without fracture. IMPRESSION: 1. No evidence of acute disease.
[2024-08-06] MEDS: NICOTINE 21MG/24 HR TOPICAL PATCH TD SCH (09:34)
[2024-08-06] MEDS: SERTRALINE HCL 50 MG TAB PO SCH (09:34)
[2024-08-06] MEDS: LISINOPRIL 5 MG TAB PO SCH (09:35)
--- NOTE | 2024-08-06 14:11 | DVHDS2 ---
Discharge Summary Date of Admission Aug 03, 2024 at 07:36 Date of Discharge: Aug 06, 2024 Admitting Diagnosis Leukocytosis, rule out sepsis Labs/Diagnostic Data: Laboratory Results Test 08/06/24 06:56 08/06/24 05:59 08/04/24 06:03 08/03/24 08:51 White Blood Count 10.1 10^3/uL (4.4-10.8) Red Blood Count 5.04 10^6/uL (4.5-5.90) Hemoglobin 15.3 g/dL (13.5-17.5) Hematocrit 42.8 % (41.0-53.0) Mean Corpuscular Volume 85.0 fL (80.0-100.0) Mean Corpuscular Hemoglobin 30.4 pg (28.0-32.0) Mean Corpuscular Hemoglobin Concent 35.7 g/dL (32.0-36.0) Red Cell Distribution Width 12.6 % (11.8-14.3) Platelet Count 308 10^3/uL (140-450) Mean Platelet Volume 7.8 fL (6.9-10.8) Neutrophils (%) (Auto) 76.5 % (37.0-80.0) Lymphocytes (%) (Auto) 15.9 % (10.0-50.0) Monocytes (%) (Auto) 7.1 % (0.0-12.0) Eosinophils (%) (Auto) 0.0 % (0.0-7.0) Basophils (%) (Auto) 0.5 % (0.0-2.0) Neutrophils # (Auto) 7.7 10 ^3/uL (1.6-8.6) Lymphocytes # (Auto) 1.6 10 ^3/uL (0.4-5.4) Monocytes # (Auto) 0.7 10 ^3/uL (0-1.3) Eosinophils # (Auto) 0 10 ^3/uL (0-0.8) Basophils # (Auto) 0.1 10 ^3/uL (0-0.2) Nucleated Red Blood Cells 0.1 % Sodium Level 140 mmol/L (136-145) Potassium Level 3.7 mmol/L (3.5-5.1) Chloride Level 107 mmol/L (98-107) Carbon Dioxide Level 22 mmol/L (20-31) Anion Gap 11 (5-15) Blood Urea Nitrogen 11 mg/dL (9-23) Creatinine 0.78 mg/dL (0.700-1.30) Glomerular Filtration Rate Calc 98 mL/min (>90) BUN/Creatinine Ratio 14.1 (10.0-20.0) Serum Glucose 104 mg/dL (74-106) Calcium Level 9.4 mg/dL (8.7-10.4) POC Glucose 116 mg/dl (70-106) Total Bilirubin 0.5 mg/dL (0.2-1.0) Aspartate Amino Transferase (AST) 18 U/L (13-40) Alanine Aminotransferase (ALT) 13 U/L (7-40) Alkaline Phosphatase 105 U/L (46-116) Total Protein 6.9 g/dL (5.7-8.2) Albumin 4.2 g/dL (3.2-4.8) Hemoglobin A1c 4.9 % A1C (<5.7) Triglycerides Level 90 mg/dL (< 150) Cholesterol Level 105 mg/dL (< 200) LDL Cholesterol 52 mg/dL (< 100) HDL Cholesterol 36 mg/dL (40-59) Thyroid Stimulating Hormone (TSH) 0.41 uIU/mL (0.55-4.78) Test 08/03/24 08:15 08/03/24 01:14 08/02/24 23:25 Urine Color Yellow (Yellow) Urine Clarity Clear (Clear) Urine pH 6.0 (5.0-9.0) Urine Specific [place] 1.026 (1.001-1.035) Urine Protein Trace (Negative) Urine Ketones Negative (Negative) Urine Blood Negative /uL (Negative) Urine Nitrite Negative (Negative) Urine Bilirubin Negative (Negative) Urine Urobilinogen 2 mg/dL (Negative) Urine Leukocyte Esterase Negative /uL (Negative) Urine RBC 2 /hpf (0 - 3) Urine Microscopic WBC 2 /HPF (0-3) Urine Squamous Epithelial Cells None seen /hpf (<5) Urine Bacteria None seen /hpf (None Seen) Urine Glucose Normal mg/dL (Normal) Urine Opiates Screen Neg (NEGATIVE) Urine Fentanyl Screen Neg (NEGATIVE) Urine Barbiturates Screen Neg (NEGATIVE) Urine Phencyclidine Screen Neg (NEGATIVE) Urine Amphetamines Screen Neg (NEGATIVE) Urine Benzodiazepines Screen Pos (NEGATIVE) Urine Cocaine Screen Neg (NEGATIVE) Urine Cannabinoids Screen Pos (NEGATIVE) Lactic Acid Level 1.4 mmol/L (0.4-2.0) Differential Total Cells Counted 100.0 (100) Neutrophils % (Manual) 89 (37.0-80.0) Band Neutrophils % (Manual) 1 Lymphocytes % (Manual) 7 (10.0-50.0) Monocytes % (Manual) 3 (0-12) Eosinophils % (Manual) 0 (0-7) Basophils % (Manual) 0 (0.0-2.0) Metamyelocytes % (manual) 0 Myelocytes % (Manual) 0 Promyelocytes % (Manual) 0 Blast Cells % (Manual) 0 Reactive Lymphocytes 0 Platelet Estimate Adequate Troponin I High Sensitivity 33 ng/L (</=54) Other Laboratory Tests 08/06/24 06:56 Brief Hx & Hospital Course: History of Present Illness This 64-year-old male with past medical history of CHF, diabetes, hypertension, presents to the ED via EMS with a chief complaint of generalized weakness. The patient reports have been stress, anxious, and depressed for the past six months after spouse . The patient states has not been eating due to no appetite. The patient denies dizziness, chest pain, shortness of breath, abdominal pain, or other acute symptoms. Course of hospitalization: Patient was started on empiric antibiotic therapy. Simon cultures were performed. Patient's white blood cell count improved. Patient's symptoms improved. Patient decided to leave against medical advice today without being counseled. Condition at Discharge: Undetermined Final Diagnosis/Problems List Sepsis, unknown origin Discharge Disposition: AMA 36 Discharge Statement: "Patient was advised to return to the ER or call 911 if any headaches, dizziness, shortness of breath, chest pain, abdominal pain, bleeding, fevers, or worsening of medical condition. Patient was counseled about treatment plan, medications, possible side effects, patientverbalized understanding. All questions were answered to the best of my ability. This discharge took greater then 30 minutes in planning, reviewing documentation, counseling the patient, and discussing with other team members." ASSESSMENT ASSESSMENT Assessment Date of Service: Aug 06, 2024 Billing Provider: ALLAN HUNTER NP Common Visit Codes: 47475-AKV/OBS DISCH DAY <30MIN ALLAN HUNTER NP Aug 06, 2024 14:11
== END 2024-08-06 11:22 | disposition left against medical advice (07) | DRG 872 ==
LOC: EDBD 22:59 → ER 22:59 → OVERFLOW 08-03 07:36 → TELE-WESTW 08-03 10:09 → WEST WING 08-05 16:11
PROVIDERS: ADMIT Nurse Practitioner Acute Care; ATTEND Nurse Practitioner Acute Care
DX: A41.9 Sepsis, unspecified organism (principal); I50.32 Chronic diastolic (congestive) heart failure; R62.7 Adult failure to thrive; I11.0 Hypertensive heart disease with heart failure; Z91.148 Patient's other noncompliance with medication regimen for other reason; F32.A Depression, unspecified; E11.9 Type 2 diabetes mellitus without complications; F41.0 Panic disorder [episodic paroxysmal anxiety]; F12.90 Cannabis use, unspecified, uncomplicated; Z68.27 Body mass index [BMI] 27.0-27.9, adult; N40.0 Benign prostatic hyperplasia without lower urinary tract symptoms; Z72.0 Tobacco use
CPT/HCPCS: 36415; 71045; 80048; 80053; 80061; 80307; 81001; 82962; 83036; 83605; 84443; 84484; 85007; 85025; 85027; 87040; 87081; 87086; 93306; 96365; 96372; G0378

== ENCOUNTER 2024-12-21 10:30 | Inpatient (IN) | payer MEDICARE, OTHER ==
[~2024-12-21] VITALS: Ht 172.7 cm; Wt 80.9 kg
[~2024-12-21 10:30] MED LIST changes: -DICL50TA2 PO; -METO-281 PO
--- NOTE | 2024-12-21 10:37 | ECG ---
[facility] Test Date: 2024-12-21 Test Time: 10:31:30 Pat Name: FAHAD SHAIKH Department: [facility] ED Patient ID: [id number] Room: 0285 Gender: M Materials Coordinator: TERI : 1960 Requested By: GHANSHYAM ORTEGA Order Number: [id number] Reading MD: Shayne Gilmore Measurements Intervals [place] Rate: 106 P: 69 RI: 163 QRS: -155 QRSD: 123 T: 26 QT: 349 QTc: 464 Interpretive Statements Sinus tachycardia RBBB and LPFB Inferior infarct, old Electronically Signed On 12-24-2024 18:38:48 PDT by Shayne Gilmore Please click the below link to view image of tracing.
--- NOTE | 2024-12-21 10:43 | ED.PDOC ---
History of Present Illness HPI Comments This 64-year-old male presents secondary to what he believes to be a drug reaction. The patient was recently started on Wellbutrin. Today, he felt his heart beating abnormally and call 911. In the field, the initial EKG was read as a STEMI. He presents here, repeat EKG does not show stone but shows a right and left bundle branch blocks. The patient had no time complained of chest pain and states that with breathing, he is able to resolve his palpitations. At the time I interviewed, he had no complaints. Denies such things as fever, chills, sweats, nausea, vomiting, chest pain or weakness. Denies modifying factors. Denies radiation of symptoms. Fourteen systems reviewed and negative except as mentioned above. Comments Palpitations Time Seen by MD: 10:33 Allergies: Coded Allergies: NO KNOWN ALLERGIES (Unverified , 01/07/15) Home Meds Active Scripts Famotidine (PEPCID TABLET) 20 Mg Tb, 1 TAB PO BID for 30 Days, #60 TAB 5 Refills Prov:AMY TEIXEIRA MD 04/16/24 Reported Medications Dapagliflozin Propanediol (Farxiga) 10 Mg Tab, 5 MG PO DAILY for 90 Days, #90 08/05/24 Sacubitril-Valsartan (Entresto 49-51 mg) 1 Tab Tab, 1 TAB PO BID for 90 Days, #180 08/05/24 Tamsulosin Hcl (Tamsulosin Hcl) 0.4 Mg Cap, 1 CAP PO DAILY for 90 Days, #90 08/05/24 Carvedilol (Carvedilol) 3.125 Mg Tab, 1 TAB PO DAILY for 30 Days, #30 08/05/24 Past Medical History PAST MEDICAL HISTORY: CHF, DM, HTN Surgical History: Denies all surgeries Family History Family History: Unobtainable Social History Smoker: Non-Smoker Alcohol: Denies ETOH Use Drugs: Denies Drug Use Lives In: Home Constitutional: reports: diaphoresis, weakness EENTM: denies: blurred vision, double vision, ear bleeding, ear discharge, ear drainage, ear pain, ear ringing, eye pain, eye redness, hearing loss, mouth pain, mouth swelling, nasal discharge, nose bleeding, nose congestion, nose pain, photophobia, tearing, throat pain, throat swelling, voice changes, others Respiratory: denies: cough, hemoptysis, orthopnea, SOB at rest, shortness of breath, SOB with excertion, stridor, wheezing, others Cardiovascular: reports: palpitations; denies: chest pain, dizzy spells, diaphoresis, Dyspnea on exertion, edema, left arm pain, lightheadedness, PND, syncope, others Gastrointestinal: denies: abdomen distended, abdominal pain, constipated, diarrhea, dysphagia, melena, nausea, poor appetite, vomiting Genitourinary: denies: burning, dysuria, flank pain, frequency, hematuria, incontinence, penile discharge, penile sore, pain, testicle pain, testicle swelling, urgency, others Neurological: reports: dizziness; denies: fainting, headache, left sided numbness, left sided weakness, numbness, paresthesia, pre-existing deficit, right sided numbness, right sided weakness, seizure, speech problems, tingling, tremors, weakness, others Musculoskeletal: denies: back pain, joint pain, joint swelling, muscle pain, muscle stiffness, neck pain, others Integumetry: denies: bruises, change in color, change in hair/nails, dryness, laceration, lesions, lumps, rash, wounds, others Hematologic/Lymphatic: denies: anemia, blood clots, easy bleeding, easy bruising, swollen glands Endocrine: denies: excessive hunger, excessive sweating, excessive thirst, excessive urination, flushing, intolerance to cold, intolerance to heat, unexplained weight gain, unexplained weight loss, others Psychiatric: reports: anxiety All Other Systems: Reviewed and Negative Physical Exam General Appearance: No Apparent Distress, Normal, Thin HEENT: Head (Atraumatic, normocephalic), PERRL/EOMI, Scleral Icterus (R) (None) Neck: Full Range of Motion, Normal, Normal Inspection Respiratory: Chest Non-Tender, Lungs Clear, No Accessory Muscle Use, No Respiratory Distress, Normal Breath Sounds Cardiovascular: No Edema, No Murmur, No Gallop, Normal Peripheral Pulses, Regular Rate/Rhythm Breast Exam: Deferred Gastrointestinal: Non Tender, No Pulsatile Mass, Normal Bowel Sounds, Soft Genitalia: Deferred Pelvic: Deferred Rectal: Deferred Extremities: No calf tenderness, Normal capillary refill, Normal inspection, Normal range of motion, Non-tender, No pedal edema 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 Was a procedure done?: No Differential Dx Considerations may include: STEMI, NSTEMI, electrolyte abnormality, PE, stroke, TIA X-Ray, Labs, Meds, VS Vital Signs Date Time Temp Pulse Resp B/P (MAP) Pulse Ox O2 Delivery O2 Flow Rate FiO2 12/21/24 10:35 97.7 118 18 159/88 97 97.7 12/21/24 10:31 106 Lab Test 12/21/24 10:48 Range/Units White Blood Count 9.5 4.4-10.8 10^3/uL Red Blood Count 5.76 4.5-5.90 10^6/uL Hemoglobin 16.9 13.5-17.5 g/dL Hematocrit 49.4 41.0-53.0 % Mean Corpuscular Volume 85.8 80.0-100.0 fL Mean Corpuscular Hemoglobin 29.3 28.0-32.0 pg Mean Corpuscular Hemoglobin Concent 34.1 32.0-36.0 g/dL Red Cell Distribution Width 13.8 11.8-14.3 % Platelet Count 292 140-450 10^3/uL Mean Platelet Volume 7.9 6.9-10.8 fL Neutrophils (%) (Auto) 81.9 H 37.0-80.0 % Lymphocytes (%) (Auto) 11.5 10.0-50.0 % Monocytes (%) (Auto) 6.3 0.0-12.0 % Eosinophils (%) (Auto) 0.0 0.0-7.0 % Basophils (%) (Auto) 0.3 0.0-2.0 % Neutrophils # (Auto) 7.8 1.6-8.6 10 ^3/uL Lymphocytes # (Auto) 1.1 0.4-5.4 10 ^3/uL Monocytes # (Auto) 0.6 0-1.3 10 ^3/uL Eosinophils # (Auto) 0 0-0.8 10 ^3/uL Basophils # (Auto) 0 0-0.2 10 ^3/uL Nucleated Red Blood Cells 0.1 % D-Dimer, Quantitative Pending Sodium Level 141 136-145 mmol/L Potassium Level 3.8 3.5-5.1 mmol/L Chloride Level 104 98-107 mmol/L Carbon Dioxide Level 21 20-31 mmol/L Anion Gap 16 H 5-15 Blood Urea Nitrogen 8 L 9-23 mg/dL Creatinine 1.26 0.700-1.30 mg/dL Glomerular Filtration Rate Calc 63 >90 mL/min BUN/Creatinine Ratio 6.3 L 10.0-20.0 Serum Glucose 155 H 74-106 mg/dL Calcium Level 9.4 8.7-10.4 mg/dL Magnesium Level 2.0 1.6-2.6 mg/dL Total Bilirubin 0.8 0.2-1.0 mg/dL Aspartate Amino Transferase (AST) 20 13-40 U/L Alanine Aminotransferase (ALT) 15 7-40 U/L Alkaline Phosphatase 108 46-116 U/L Troponin I High Sensitivity < 3 L </=54 ng/L B-Type Natriuretic Peptide 5.88 0-100 pg/mL Total Protein 7.3 5.7-8.2 g/dL Albumin 5.0 H 3.2-4.8 g/dL X-Ray, Labs, Meds, VS Comment This 64-year-old male with a past medical history significant for hypertension and diabetes mellitus presents secondary to palpitations. In the field, the EKG was read as abnormal and possible STEMI. Here, repeat EKG showed a right and left bundle branch block. Patient denied chest pain at the time of my interviewed. However, considering his abnormal EKG, palpitations and multiple risk factors, admit the patient for further workup, management and to rule out ACS. He has a heart score of six. Time of 1ST Reevaluation: 11:33 Reevaluation 1ST: Unchanged Patient Education/Counseling: Diagnosis, Treatment, Prognosis Family Education/Counseling: No Family Present SEPSIS Sepsis Screen Physician Orders Urinalysis (12/21/24 10:36) Drug Screen (12/21/24 10:36) D-Dimer (12/21/24 10:36) Troponin-I Hs (12/21/24 11:36) Troponin-I Hs (12/21/24 13:36) Vital Signs Date Time Temp Pulse Resp B/P (MAP) Pulse Ox O2 Delivery O2 Flow Rate FiO2 12/21/24 10:35 97.7 118 18 159/88 97 97.7 12/21/24 10:31 106 Laboratory Tests Test 12/21/24 10:48 White Blood Count 9.5 10^3/uL (4.4-10.8) Departure 1 Departure Time of Disposition: 11:33 Impression: Primary Impression: ACS (acute coronary syndrome) Additional Impressions: Palpitation Cardiac arrhythmia Disposition: ADMITTED INPATIENT Condition: Serious Critical Care Note Critical Care Time?: Yes (30 min-critical care time only) Critical care comment: Total critical care time: Approximately 36 minutes Due to a high probability of clinically significant, life threatening deterioration, the patient required my highest level of preparedness to intervene emergently and I personally spent this critical care time directly and personally managing the patient. This critical care time included obtaining a history; examining the patient; pulse oximetry; ordering and review of studies; arranging urgent treatment with development of a management plan; evaluation of patient's response to treatment; frequent reassessment; and, discussions with other providers. This critical care time was performed to assess and manage the high probability of imminent, life-threatening deterioration that could result in multi-organ failure. It was exclusive of separately billable procedures and treating other patients and teaching time. Please see MDM section and the rest of the note for further information on patient assessment and treatment. Stability Stability form required: No Heart Score Heart Score: Heart Score Response (Comments) Value History Moderate Suspicious 1 EKG Repolarization Disturb 1 Age >65 2 Risk Factors >3 or Hx ASHD 2 Troponin Normal limit 0 Total 6 GHANSHYAM ORTEGA MD Dec 21, 2024 10:43
--- NOTE | 2024-12-21 10:47 | ED.PDOC ---
HPI Comments 64 y.o male BIB EMS to the ED for a possible STEMI, based on an EKG reading performed in the field with a HR of 123 then. Patient denies experiencing any chest pain and reports that his call to 911 was prompted by an adverse reaction to a new, unspecified medication he started two days prior. The patient explains that this reaction made him anxious, but he now feels better since arriving at the ED. No other symptoms have been reported. Patient has a medical history of DM, HTN and CHF. Time Seen by MD: 10:40 Reviewed Notes: Nurses Notes, Mother Helper Notes, Medications, Allergies Allergies: Coded Allergies: NO KNOWN ALLERGIES (Unverified , 01/07/15) Home Meds Active Scripts Famotidine (PEPCID TABLET) 20 Mg Tb, 1 TAB PO BID for 30 Days, #60 TAB 5 Refills Prov:AMY TEIXEIRA MD 04/16/24 Reported Medications Dapagliflozin Propanediol (Farxiga) 10 Mg Tab, 5 MG PO DAILY for 90 Days, #90 08/05/24 Sacubitril-Valsartan (Entresto 49-51 mg) 1 Tab Tab, 1 TAB PO BID for 90 Days, #1 80 08/05/24 Tamsulosin Hcl (Tamsulosin Hcl) 0.4 Mg Cap, 1 CAP PO DAILY for 90 Days, #90 08/05/24 Carvedilol (Carvedilol) 3.125 Mg Tab, 1 TAB PO DAILY for 30 Days, #30 08/05/24 Information Source: Patient, Emergency Med Personnel Mode of Arrival: EMS Severity: Mild Timing: Hours Duration: Since onset Prehospital treatment: 12 Lead EKG, Bus Escort Onset: At Rest Cardiac Risk Factors: HTN, Diabetes PE Risk Factors: None History of: None Modifying Factors: Nothing Associated Signs and Symptoms: None Past Medical History PAST MEDICAL HISTORY: CHF, DM, HTN Surgical History: Denies all surgeries Family History Family History: Unobtainable Social History Smoker: Non-Smoker Alcohol: Denies ETOH Use Drugs: Denies Drug Use Lives In: Home Constitutional: denies: chills, diaphoresis, fatigue, fever, malaise, sweats, weakness, others EENTM: denies: blurred vision, double vision, ear bleeding, ear discharge, ear drainage, ear pain, ear ringing, eye pain, eye redness, hearing loss, mouth pain, mouth swelling, nasal discharge, nose bleeding, nose congestion, nose pain, photophobia, tearing, throat pain, throat swelling, voice changes, others Respiratory: denies: cough, hemoptysis, orthopnea, SOB at rest, shortness of breath, SOB with excertion, stridor, wheezing, others Cardiovascular: denies: chest pain, dizzy spells, diaphoresis, Dyspnea on exertion, edema, irregular heart beat, left arm pain, lightheadedness, palpitations, PND, syncope, others Gastrointestinal: denies: abdomen distended, abdominal pain, blood streaked bowels, constipated, diarrhea, dysphagia, difficulty swallowing, hematemesis, melena, nausea, poor appetite, poor fluid intake, rectal bleeding, rectal pain, vomiting, others Genitourinary: denies: burning, dysuria, flank pain, frequency, hematuria, incontinence, penile discharge, penile sore, pain, testicle pain, testicle swelling, urgency, others Neurological: denies: dizziness, fainting, headache, left sided numbness, left sided weakness, numbness, paresthesia, pre-existing deficit, right sided numbness, right sided weakness, seizure, speech problems, tingling, tremors, weakness, others Musculoskeletal: denies: back pain, gout, joint pain, joint swelling, muscle pain, muscle stiffness, neck pain, others Integumetry: denies: bruises, change in color, change in hair/nails, dryness, laceration, lesions, lumps, rash, wounds, others Allergic/Immunocompromised: denies: Difficulty Healing, Frequent Infections, Hives, Itching, others Hematologic/Lymphatic: denies: anemia, blood clots, easy bleeding, easy bruising, swollen glands, others Endocrine: denies: excessive hunger, excessive sweating, excessive thirst, excessive urination, flushing, intolerance to cold, intolerance to heat, unexplained weight gain, unexplained weight loss, others Psychiatric: denies: anxiety, bipolar disorder, depression, hopeless, panic disorder, schizophrenia, sleepless, suicidal, others All Other Systems: Reviewed and Negative Physical Exam General Appearance: No Apparent Distress, Normal HEENT: Normal ENT Inspection Neck: Normal Inspection Respiratory: No Accessory Muscle Use, No Respiratory Distress Cardiovascular: Normal Peripheral Pulses, Tachycardia Breast Exam: Deferred Gastrointestinal: NOT DONE Genitalia: Deferred Pelvic: Deferred Rectal: Deferred Extremities: Normal inspection Neurologic: Alert, Normal Affect, Normal Mood Cerebellar Function: Unable to Test Reflexes: NOT DONE Skin: Dry, Normal Color Lymphatic: NOT DONE Was a procedure done? Was a procedure done?: No CP Differential Dx Differential Diagnosis: Anxiety / Panic Attack, AV Block 1st Degree, Electrolyte Disorder, [place] X-Ray, Labs, Meds, VS Vital Signs Date Time Temp Pulse Resp B/P (MAP) Pulse Ox O2 Delivery O2 Flow Rate FiO2 12/21/24 10:35 97.7 118 18 159/88 97 97.7 12/21/24 10:31 106 Lab Test 12/21/24 10:48 Range/Units White Blood Count 9.5 4.4-10.8 10^3/uL Red Blood Count 5.76 4.5-5.90 10^6/uL Hemoglobin 16.9 13.5-17.5 g/dL Hematocrit 49.4 41.0-53.0 % Mean Corpuscular Volume 85.8 80.0-100.0 fL Mean Corpuscular Hemoglobin 29.3 28.0-32.0 pg Mean Corpuscular Hemoglobin Concent 34.1 32.0-36.0 g/dL Red Cell Distribution Width 13.8 11.8-14.3 % Platelet Count 292 140-450 10^3/uL Mean Platelet Volume 7.9 6.9-10.8 fL Neutrophils (%) (Auto) 81.9 H 37.0-80.0 % Lymphocytes (%) (Auto) 11.5 10.0-50.0 % Monocytes (%) (Auto) 6.3 0.0-12.0 % Eosinophils (%) (Auto) 0.0 0.0-7.0 % Basophils (%) (Auto) 0.3 0.0-2.0 % Neutrophils # (Auto) 7.8 1.6-8.6 10 ^3/uL Lymphocytes # (Auto) 1.1 0.4-5.4 10 ^3/uL Monocytes # (Auto) 0.6 0-1.3 10 ^3/uL Eosinophils # (Auto) 0 0-0.8 10 ^3/uL Basophils # (Auto) 0 0-0.2 10 ^3/uL Nucleated Red Blood Cells 0.1 % D-Dimer, Quantitative Pending Sodium Level Pending Potassium Level Pending Chloride Level Pending Carbon Dioxide Level Pending Anion Gap Pending Blood Urea Nitrogen Pending Creatinine Pending Glomerular Filtration Rate Calc Pending BUN/Creatinine Ratio Pending Serum Glucose Pending Calcium Level Pending Magnesium Level Pending Total Bilirubin Pending Aspartate Amino Transferase (AST) Pending Alanine Aminotransferase (ALT) Pending Alkaline Phosphatase Pending Troponin I High Sensitivity Pending B-Type Natriuretic Peptide Pending Total Protein Pending Albumin Pending Time of 1ST Reevaluation: 11:00 Reevaluation 1ST: Unchanged Patient Education/Counseling: Diagnosis, Treatment, Prognosis Family Education/Counseling: No Family Present SEPSIS Sepsis Screen Physician Orders Magnesium (12/21/24 10:36) Comprehensive Metabolic Panel (12/21/24 10:36) Urinalysis (12/21/24 10:36) Drug Screen (12/21/24 10:36) Troponin-I Hs (12/21/24 10:36) D-Dimer (12/21/24 10:36) B-Type Natriuretic Peptide (12/21/24 10:36) Troponin-I Hs (12/21/24 11:36) Troponin-I Hs (12/21/24 13:36) Vital Signs Date Time Temp Pulse Resp B/P (MAP) Pulse Ox O2 Delivery O2 Flow Rate FiO2 12/21/24 10:35 97.7 118 18 159/88 97 97.7 12/21/24 10:31 106 Laboratory Tests Test 12/21/24 10:48 White Blood Count 9.5 10^3/uL (4.4-10.8) Critical Care Note Critical Care Time?: Yes Stability Stability form required: No Heart Score Heart Score: Heart Score Response (Comments) Value History Moderate Suspicious 1 Age >65 2 Risk Factors 1 or 2 risk factors 1 Total 4 I personally scribed for GHANSHYAM ORTEGA MD ([email or web address]) on 12/21/24 at 10:47. Electronically submitted by Deysi Garcia ([employer]). I personally scribed for GHANSHYAM ORTEGA MD ([email or web address]) on 12/21/24 at 11:19. Electronically submitted by Deysi Garcia ([employer]). GHANSHYAM ORTEGA MD Dec 21, 2024 10:47
[2024-12-21 11:10] LABS: Hematocrit 49.4 % (41.0-53.0); Hemoglobin 16.9 g/dL (13.5-17.5); Mean Corpuscular Hemoglobin 29.3 pg (28.0-32.0); Mean Corpuscular Volume 85.8 fL (80.0-100.0); Nucleated Red Blood Cells % 0.1 %
[2024-12-21 11:24] LABS: Alanine Aminotransferase 15 U/L (7-40); Alkaline Phosphatase 108 U/L (46-116); Anion Gap 16 (5-15); BUN/Creatinine Ratio 6.3 (10.0-20.0); Bilirubin, Total 0.8 mg/dL (0.2-1.0); Calcium 9.4 mg/dL (8.7-10.4); Carbon Dioxide 21 mmol/L (20-31); Chloride 104 mmol/L (98-107); Magnesium 2.0 mg/dL (1.6-2.6); Potassium 3.8 mmol/L (3.5-5.1); Sodium 141 mmol/L (136-145); Total Protein 7.3 g/dL (5.7-8.2)
[2024-12-21 11:26] LABS: Albumin 5.0 g/dL (3.2-4.8); Blood Urea Nitrogen 8 mg/dL (9-23); Glucose 155 mg/dL (74-106)
[2024-12-21 12:48] LABS: Urine Protein, UAD TRACE (Negative)
[2024-12-21 12:50] VITALS: PULSE 103; RESP 18; O2SAT 98
[2024-12-21 12:56] LABS: Amphetamine Screen, Urine Neg (NEGATIVE); Barbiturate Scree,Urine Neg (NEGATIVE); Benzodiazephine Screen, Urine Neg (NEGATIVE); Cannabinoid Screen, Urine Pos (NEGATIVE); Cocaine Screen, Urine Neg (NEGATIVE); Opiate Scree,Urine Neg (NEGATIVE); Phencyclidine Screen, Urine Neg (NEGATIVE)
--- NOTE | 2024-12-21 14:56 | DVHHP2 ---
Admitting Diagnosis: Chest pain History of Present Illness This 64-year-old male presents secondary to what he believes to be a drug reaction. The patient was recently started on Wellbutrin. Today, he felt his heart beating abnormally and call 911. In the field, the initial EKG was read as a STEMI. He presents here, repeat EKG does not show stone but shows a right and left bundle branch blocks. The patient had no time complained of chest pain and states that with breathing, he is able to resolve his palpitations. At the time I interviewed, he had no complaints. Denies such things as fever, chills, sweats, nausea, vomiting, chest pain or weakness. Denies modifying factors. Denies radiation of symptoms. PAST MEDICAL HISTORY: CHF, DM, HTN Surgical History: Denies all surgeries Family History Family History: Unobtainable Social History Smoker: Non-Smoker Alcohol: Denies ETOH Use Drugs: Denies Drug Use Lives In: Home Patient Family History: Patient reports no known family medical history. Allergies: Coded Allergies: NO KNOWN ALLERGIES (Unverified , 01/07/15) Home Meds Active Scripts Famotidine (PEPCID TABLET) 20 Mg Tb, 1 TAB PO BID for 30 Days, #60 TAB 5 Refills Prov:AMY TEIXEIRA MD 04/16/24 Reported Medications Dapagliflozin Propanediol (Farxiga) 10 Mg Tab, 5 MG PO DAILY for 90 Days, #90 08/05/24 Sacubitril-Valsartan (Entresto 49-51 mg) 1 Tab Tab, 1 TAB PO BID for 90 Days, #180 08/05/24 Tamsulosin Hcl (Tamsulosin Hcl) 0.4 Mg Cap, 1 CAP PO DAILY for 90 Days, #90 08/05/24 Carvedilol (Carvedilol) 3.125 Mg Tab, 1 TAB PO DAILY for 30 Days, #30 08/05/24 Current Medications Current Medications Medications (Trade) Dose Ordered Sig/Cady Route PRN Reason Start Time Stop Time Status Last Admin Carvedilol (Coreg Tablet) 3.125 mg DAILY PO 12/22/24 10:00 UNV Famotidine (Pepcid Tablet) 20 mg BID PO 12/21/24 22:00 UNV Tamsulosin HCl (Flomax) 0.4 mg DAILY PO 12/22/24 10:00 UNV Patient Own Medication 5 mg DAILY PO 12/22/24 10:00 UNV Patient Own Medication 1 tab BID PO 12/21/24 22:00 UNV Sodium Chloride (Saline Lock Ns) 10 ml Q8HR IV 12/21/24 22:00 UNV Docusate Sodium (Colace Capsule) 100 mg BIDPRN PRN PO FOR CONSTIPATION 12/21/24 15:00 UNV Acetaminophen (Tylenol Tablet) 650 mg Q6HP PRN PO PAIN SCALE 1-3 OR TEMP>100.4 12/21/24 15:00 UNV Acetaminophen/ Hydrocodone Bitart (Damon 5/325MG Tab) 1 tab Q4HP PRN PO MODERATE PAIN (4-6 PAIN SCALE) 12/21/24 15:00 UNV Hydromorphone HCl (Dilaudid Injection) 0.5 mg Q4HP PRN IV SEVERE PAIN (7-10 PAIN SCALE) 12/21/24 15:00 UNV Ondansetron HCl (Zofran) 4 mg Q4HP PRN IV NAUSEA / VOMITING 12/21/24 15:00 UNV Enoxaparin Sodium (Lovenox) 40 mg DAILY SC 12/22/24 10:00 UNV Nitroglycerin (Ntrostat Sublingual) 0.4 mg Q5MINP PRN SL FOR CHEST PAIN 12/21/24 15:00 UNV Morphine Sulfate 2 mg Q30M PRN IV FOR CHEST PAIN 12/21/24 15:00 UNV Vital Signs Vital Signs Date Time Temp Pulse Resp B/P (MAP) Pulse Ox O2 Delivery O2 Flow Rate FiO2 12/21/24 12:50 103 18 98 Room Air* 0 21 12/21/24 11:42 100/70 (80) 12/21/24 10:35 97.7 97.7 Physical Exam Generally 64 years old male, well nourished well no apparent distress HEENT-atraumatic normocephalic Heart-regular rate and rhythm Lungs clear to auscultate Soft nontender nondistended Musculoskeletal-pedal edema, no cyanosis Neuro-AO x3, no focal deficits SEPSIS Sepsis Screen Date sepsis recognized/suspect: Dec 21, 2024 Time Sepsis recognized/suspect: 103 Recent Procedure: No On Antibiotic Therapy: No Respiratory Rate >20: No Heart Rate >90: Yes Temp<36 C (96.8 F) or >38.3 C: No SBP <90 or MAP <65 mmHG: No New Acute Mental Status Change: No Is the patient on CPAP, BIPAP,: No Physician Orders Cardiac Diet-2gna,Lofat,Lochol (12/21/24 Dinner) Npo (Nothing By Mouth) Diet (12/22/24 Breakfast) Carvedilol Tablet (Coreg Tablet) (12/22/24 10:00) Famotidine Tablet (Pepcid Tablet) (12/21/24 22:00) Tamsulosin Hydrochloride (Flomax) (12/22/24 10:00) (Nf) Dapagliflozin Propanediol (Farxiga) (12/22/24 10:00) (Nf) Sacubitril-Valsartan (Entresto 49-5 (12/21/24 22:00) Admit (12/21/24 14:50) Code Status (12/21/24 14:50) Vital Signs .PER UNIT PROTOCOL (12/21/24 14:50) Review Orders With Adm.Md (12/21/24 14:50) Encourage Activity As Tolerate (12/21/24 14:50) Sodium Chloride Lock (Saline Lock Ns) (12/21/24 22:00) Docusate Sodium Capsule (Colace Capsule) (12/21/24 15:00) Acetaminophen Tablet (Tylenol Tablet) (12/21/24 15:00) Notify Md Of Changes From Base (12/21/24 14:50) Advance Directive (12/21/24 14:50) Patient Condition (12/21/24 14:50) Allergies (12/21/24 14:50) Hydrocodone-Acet 5/325mg Tab (Damon 5/32 (12/21/24 15:00) Hydromorphone Injection (Dilaudid Inject (12/21/24 15:00) Ondansetron Hcl (Zofran) (12/21/24 15:00) Enoxaparin Sodium (Lovenox) (12/22/24 10:00) Nitroglycerin Sublingual (Ntrostat Subli (12/21/24 15:00) Morphine Sulfate Injection (12/21/24 15:00) Stat Ekg For Chest Pain (12/21/24 14:50) Notify Md Of Changes From Base (12/21/24 14:50) Import Manager For 24 Hours (12/21/24 14:50) Emergency Dysrhythmia Protocol (12/21/24 14:50) Rhythm Strips Once Every Shift (12/21/24 14:50) Oxygen By Nasal Cannula (12/21/24 14:50) Electrocardigram (12/21/24 14:59) Vital Signs Date Time Temp Pulse Resp B/P (MAP) Pulse Ox O2 Delivery O2 Flow Rate FiO2 12/21/24 12:50 103 18 98 Room Air* 0 21 12/21/24 11:42 103 18 100/70 (80) 98 12/21/24 11:42 103 18 98 Room Air 12/21/24 10:35 97.7 118 18 159/88 97 97.7 12/21/24 10:31 106 Laboratory Tests Test 12/21/24 10:48 White Blood Count 9.5 10^3/uL (4.4-10.8) Results Labs Test 12/21/24 12:31 12/21/24 11:55 12/21/24 10:48 Range/Units Urine Color Yellow Yellow Urine Clarity Clear Clear Urine pH 6.0 5.0-9.0 Urine Specific [place] 1.019 1.001-1.035 Urine Protein Trace H Negative Urine Ketones 1+ H Negative Urine Blood Negative Negative /uL Urine Nitrite Negative Negative Urine Bilirubin Negative Negative Urine Urobilinogen Normal Negative mg/dL Urine Leukocyte Esterase Negative Negative /uL Urine RBC 2 0 - 3 /hpf Urine Microscopic WBC 5 H 0-3 /HPF Urine Squamous Epithelial Cells None seen <5 /hpf Urine Bacteria None seen None Seen /hpf Urine Hyaline Casts Few 0 - 2 /lpf Urine Mucus Few None Seen Urine Glucose Normal Normal mg/dL Urine Opiates Screen Neg NEGATIVE Urine Fentanyl Screen Neg NEGATIVE Urine Barbiturates Screen Neg NEGATIVE Urine Phencyclidine Screen Neg NEGATIVE Urine Amphetamines Screen Neg NEGATIVE Urine Benzodiazepines Screen Neg NEGATIVE Urine Cocaine Screen Neg NEGATIVE Urine Cannabinoids Screen Pos NEGATIVE Troponin I High Sensitivity < 3 L </=54 ng/L White Blood Count 9.5 4.4-10.8 10^3/uL Red Blood Count 5.76 4.5-5.90 10^6/uL Hemoglobin 16.9 13.5-17.5 g/dL Hematocrit 49.4 41.0-53.0 % Mean Corpuscular Volume 85.8 80.0-100.0 fL Mean Corpuscular Hemoglobin 29.3 28.0-32.0 pg Mean Corpuscular Hemoglobin Concent 34.1 32.0-36.0 g/dL Red Cell Distribution Width 13.8 11.8-14.3 % Platelet Count 292 140-450 10^3/uL Mean Platelet Volume 7.9 6.9-10.8 fL Neutrophils (%) (Auto) 81.9 H 37.0-80.0 % Lymphocytes (%) (Auto) 11.5 10.0-50.0 % Monocytes (%) (Auto) 6.3 0.0-12.0 % Eosinophils (%) (Auto) 0.0 0.0-7.0 % Basophils (%) (Auto) 0.3 0.0-2.0 % Neutrophils # (Auto) 7.8 1.6-8.6 10 ^3/uL Lymphocytes # (Auto) 1.1 0.4-5.4 10 ^3/uL Monocytes # (Auto) 0.6 0-1.3 10 ^3/uL Eosinophils # (Auto) 0 0-0.8 10 ^3/uL Basophils # (Auto) 0 0-0.2 10 ^3/uL Nucleated Red Blood Cells 0.1 % D-Dimer, Quantitative 0.22 0.0-0.49 mg/L FEU Sodium Level 141 136-145 mmol/L Potassium Level 3.8 3.5-5.1 mmol/L Chloride Level 104 98-107 mmol/L Carbon Dioxide Level 21 20-31 mmol/L Anion Gap 16 H 5-15 Blood Urea Nitrogen 8 L 9-23 mg/dL Creatinine 1.26 0.700-1.30 mg/dL Glomerular Filtration Rate Calc 63 >90 mL/min BUN/Creatinine Ratio 6.3 L 10.0-20.0 Serum Glucose 155 H 74-106 mg/dL Calcium Level 9.4 8.7-10.4 mg/dL Magnesium Level 2.0 1.6-2.6 mg/dL Total Bilirubin 0.8 0.2-1.0 mg/dL Aspartate Amino Transferase (AST) 20 13-40 U/L Alanine Aminotransferase (ALT) 15 7-40 U/L Alkaline Phosphatase 108 46-116 U/L B-Type Natriuretic Peptide 5.88 0-100 pg/mL Total Protein 7.3 5.7-8.2 g/dL Albumin 5.0 H 3.2-4.8 g/dL Primary Diagnosis Chest pain rule out ACS Plan Sinus tach with a RBBB and LPFB Patient's commands pain with the exertion Troponin negative Check echo of the heart to assess for regional wall motion Cardiac diet NPO altered mentation for possible stress test if patient has persistent pain for possible ischemia Cardiology consult for unstable angina Resume home meds for chf Full code Lovenox for DVT prophylaxis No GI prophylaxis needed Plan discussed with: Patient Problems List: (1) Chest pain Date of Service: Dec 21, 2024 Billing Provider: SHAQUILLE BROWN MD Common Visit Codes: [id number] INP/OBS CARE (MOD) SHAQUILLE BROWN MD Dec 21, 2024 14:56
[2024-12-21] MEDS ORDERED: DOCUSATE SOD 100 MG CAP PO PRN (15:00)
[2024-12-21] MEDS ORDERED: ACETAMINOPHEN 325 MG TAB PO PRN (15:00)
[2024-12-21] MEDS ORDERED: ONDANSETRON HCL 4 MG/2 ML VIAL IV PRN (15:00)
[2024-12-21] MEDS ORDERED: MORPHINE SULFATE INJ 2 MG/ml SYRG IV PRN (15:00)
[2024-12-21] MEDS ORDERED: NITROGLYCERIN 0.4 MG SL TAB SL PRN (15:00)
[2024-12-21] MEDS: HYDROcodone-ACET 5/325MG TAB PO PRN (17:49)
--- NOTE | 2024-12-21 20:31 | DVHINCON2 ---
Date of service: Dec 21, 2024 Referring Physician Tarun Reason for Consultation Chest pain History of Present Illness This is a 64-year-old male with a PMH of CHF, DM, HTN presents to the ED with a complaint of a drug reaction. Patient was recently started on Wellbutrin. Today, he felt his heart beating abnormally and called 911. On scene, the initial EKG was read as a STEMI. Repeat EKG does not show STEMI but shows a ri ght and left bundle branch blocks. Troponin is negative x2. EKG in the ED shows tachycardia at 106. CBC is unremarkable. Patient was admitted to the hospital. I am asked to consult on this patient. Family History: Patient reports no known family medical history. Allergies: Coded Allergies: NO KNOWN ALLERGIES (Unverified , 01/07/15) Home Meds Active Scripts Famotidine (PEPCID TABLET) 20 Mg Tb, 1 TAB PO BID for 30 Days, #60 TAB 5 Refills Prov:AMY TEIXEIRA MD 04/16/24 Reported Medications Dapagliflozin Propanediol (Farxiga) 10 Mg Tab, 5 MG PO DAILY for 90 Days, #90 08/05/24 Sacubitril-Valsartan (Entresto 49-51 mg) 1 Tab Tab, 1 TAB PO BID for 90 Days, #180 08/05/24 Tamsulosin Hcl (Tamsulosin Hcl) 0.4 Mg Cap, 1 CAP PO DAILY for 90 Days, #90 08/05/24 Carvedilol (Carvedilol) 3.125 Mg Tab, 1 TAB PO DAILY for 30 Days, #30 08/05/24 Current Medications Current Medications Medications (Trade) Dose Ordered Sig/Cady Route PRN Reason Start Time Stop Time Status Last Admin Carvedilol (Coreg Tablet) 3.125 mg DAILY PO 12/22/24 10:00 Famotidine (Pepcid Tablet) 20 mg BID PO 12/21/24 22:00 Tamsulosin HCl (Flomax) 0.4 mg DAILY PO 12/22/24 10:00 Patient Own Medication 5 mg DAILY PO 12/22/24 10:00 Patient Own Medication 1 tab BID PO 12/21/24 22:00 Sodium Chloride (Saline Lock Ns) 10 ml Q8HR IV 12/21/24 22:00 Docusate Sodium (Colace Capsule) 100 mg BIDPRN PRN PO FOR CONSTIPATION 12/21/24 15:00 Acetaminophen (Tylenol Tablet) 650 mg Q6HP PRN PO PAIN SCALE 1-3 OR TEMP>100.4 12/21/24 15:00 Acetaminophen/ Hydrocodone Bitart ([place] 5/325MG Tab) 1 tab Q4HP PRN PO MODERATE PAIN (4-6 PAIN SCALE) 12/21/24 15:00 12/21/24 17:49 Hydromorphone HCl (Dilaudid Injection) 0.5 mg Q4HP PRN IV SEVERE PAIN (7-10 PAIN SCALE) 12/21/24 15:00 Ondansetron HCl (Zofran) 4 mg Q4HP PRN IV NAUSEA / VOMITING 12/21/24 15:00 Enoxaparin Sodium (Lovenox) 40 mg DAILY SC 12/22/24 10:00 Nitroglycerin (Ntrostat Sublingual) 0.4 mg Q5MINP PRN SL FOR CHEST PAIN 12/21/24 15:00 Morphine Sulfate 2 mg Q30M PRN IV FOR CHEST PAIN 12/21/24 15:00 Review of Systems Constitutional: reports: diaphoresis, weakness EENTM: denies: blurred vision, double vision, ear bleeding, ear discharge, ear drainage, ear pain, ear ringing, eye pain, eye redness, hearing loss, mouth pain, mouth swelling, nasal discharge, nose bleeding, nose congestion, nose pain, photophobia, tearing, throat pain, throat swelling, voice changes, others Respiratory: denies: cough, hemoptysis, orthopnea, SOB at rest, shortness of breath, SOB with excertion, stridor, wheezing, others Cardiovascular: reports: palpitations; denies: chest pain, dizzy spells, diaphoresis, Dyspnea on exertion, edema, left arm pain, lightheadedness, PND, syncope, others Gastrointestinal: denies: abdomen distended, abdominal pain, constipated, diarrhea, dysphagia, melena, nausea, poor appetite, vomiting Genitourinary: denies: burning, dysuria, flank pain, frequency, hematuria, incontinence, penile discharge, penile sore, pain, testicle pain, testicle swelling, urgency, others Neurological: reports: dizziness; denies: fainting, headache, left sided numbness, left sided weakness, numbness, paresthesia, pre-existing deficit, right sided numbness, right sided weakness, seizure, speech problems, tingling, tremors, weakness, others Musculoskeletal: denies: back pain, joint pain, joint swelling, muscle pain, muscle stiffness, neck pain, others Integumetry: denies: bruises, change in color, change in hair/nails, dryness, laceration, lesions, lumps, rash, wounds, others Hematologic/Lymphatic: denies: anemia, blood clots, easy bleeding, easy bruising, swollen glands Endocrine: denies: excessive hunger, excessive sweating, excessive thirst, excessive urination, flushing, intolerance to cold, intolerance to heat, unexplained weight gain, unexplained weight loss, others Psychiatric: reports: anxiety All Other Systems: Reviewed and Negative Vital Signs Vital Signs Date Time Temp Pulse Resp B/P (MAP) Pulse Ox O2 Delivery O2 Flow Rate FiO2 12/21/24 12:50 103 18 98 Room Air* 0 21 12/21/24 11:42 100/70 (80) 12/21/24 10:35 97.7 97.7 Physical Exam GENERAL: Alert and oriented x 3. No acute distress. EYES: PERRL, EOMI. Anicteric. HENT: Moist mucous membranes. LUNGS: Clear to auscultation bilaterally. CARDIOVASCULAR: Regular rate and rhythm. ABDOMEN: Soft, nontender and nondistended. EXTREMITIES: No edema. NEUROLOGIC: No focal neurological deficits. SKIN: Warm, dry. Labs/Diagnostic Data Labs Test 12/21/24 12:31 12/21/24 11:55 12/21/24 10:48 Range/Units Urine Color Yellow Yellow Urine Clarity Clear Clear Urine pH 6.0 5.0-9.0 Urine Specific [place] 1.019 1.001-1.035 Urine Protein Trace H Negative Urine Ketones 1+ H Negative Urine Blood Negative Negative /uL Urine Nitrite Negative Negative Urine Bilirubin Negative Negative Urine Urobilinogen Normal Negative mg/dL Urine Leukocyte Esterase Negative Negative /uL Urine RBC 2 0 - 3 /hpf Urine Microscopic WBC 5 H 0-3 /HPF Urine Squamous Epithelial Cells None seen <5 /hpf Urine Bacteria None seen None Seen /hpf Urine Hyaline Casts Few 0 - 2 /lpf Urine Mucus Few None Seen Urine Glucose Normal Normal mg/dL Urine Opiates Screen Neg NEGATIVE Urine Fentanyl Screen Neg NEGATIVE Urine Barbiturates Screen Neg NEGATIVE Urine Phencyclidine Screen Neg NEGATIVE Urine Amphetamines Screen Neg NEGATIVE Urine Benzodiazepines Screen Neg NEGATIVE Urine Cocaine Screen Neg NEGATIVE Urine Cannabinoids Screen Pos NEGATIVE Troponin I High Sensitivity < 3 L </=54 ng/L White Blood Count 9.5 4.4-10.8 10^3/uL Red Blood Count 5.76 4.5-5.90 10^6/uL Hemoglobin 16.9 13.5-17.5 g/dL Hematocrit 49.4 41.0-53.0 % Mean Corpuscular Volume 85.8 80.0-100.0 fL Mean Corpuscular Hemoglobin 29.3 28.0-32.0 pg Mean Corpuscular Hemoglobin Concent 34.1 32.0-36.0 g/dL Red Cell Distribution Width 13.8 11.8-14.3 % Platelet Count 292 140-450 10^3/uL Mean Platelet Volume 7.9 6.9-10.8 fL Neutrophils (%) (Auto) 81.9 H 37.0-80.0 % Lymphocytes (%) (Auto) 11.5 10.0-50.0 % Monocytes (%) (Auto) 6.3 0.0-12.0 % Eosinophils (%) (Auto) 0.0 0.0-7.0 % Basophils (%) (Auto) 0.3 0.0-2.0 % Neutrophils # (Auto) 7.8 1.6-8.6 10 ^3/uL Lymphocytes # (Auto) 1.1 0.4-5.4 10 ^3/uL Monocytes # (Auto) 0.6 0-1.3 10 ^3/uL Eosinophils # (Auto) 0 0-0.8 10 ^3/uL Basophils # (Auto) 0 0-0.2 10 ^3/uL Nucleated Red Blood Cells 0.1 % D-Dimer, Quantitative 0.22 0.0-0.49 mg/L FEU Sodium Level 141 136-145 mmol/L Potassium Level 3.8 3.5-5.1 mmol/L Chloride Level 104 98-107 mmol/L Carbon Dioxide Level 21 20-31 mmol/L Anion Gap 16 H 5-15 Blood Urea Nitrogen 8 L 9-23 mg/dL Creatinine 1.26 0.700-1.30 mg/dL Glomerular Filtration Rate Calc 63 >90 mL/min BUN/Creatinine Ratio 6.3 L 10.0-20.0 Serum Glucose 155 H 74-106 mg/dL Calcium Level 9.4 8.7-10.4 mg/dL Magnesium Level 2.0 1.6-2.6 mg/dL Total Bilirubin 0.8 0.2-1.0 mg/dL Aspartate Amino Transferase (AST) 20 13-40 U/L Alanine Aminotransferase (ALT) 15 7-40 U/L Alkaline Phosphatase 108 46-116 U/L B-Type Natriuretic Peptide 5.88 0-100 pg/mL Total Protein 7.3 5.7-8.2 g/dL Albumin 5.0 H 3.2-4.8 g/dL Assessment Chest pain. Tachycardia. Plan/Recommendation I agree with your ongoing assessment and care of plan. Echocardiogram. Dilaudid and [place] for pain management. Coreg. DVT prophylactics. Nitro SL. Additional plan as per the hospital course. A total of 45 minutes was spent reviewing the patient record, examining the patient, making a diagnostic and therapeutic plan, discussing this plan with medical personnel, following up on diagnostic studies and following the patient for clinical stability excluding any and all procedures. At least 50% of this time was spent in direct, [id number] contact. Plan discussed with: Patient LEILA WANG MD Dec 21, 2024 18:43
[2024-12-21] MEDS: PATIENTS OWN MEDICATION (Sacubitril-Valsartan (Entresto 49-51 mg) 1 TAB) PO SCH (22:00)
[2024-12-21 22:21] VITALS: BP 150/80; PULSE 61; RESP 18; TEMP 97.7; O2SAT 99
[2024-12-21] MEDS: SODIUM CHLOR 0.9% PF (SALINE LOCK) 10ML VIAL/SYR IV SCH (23:25)
[2024-12-21] MEDS: FAMOTIDINE 20 MG TAB PO SCH (23:25)
[2024-12-22] VITALS (9 sets, daily range): BP systolic 112–150; BP diastolic 65–86; PULSE 57–73; RESP 16–19; TEMP 97.7–98; O2SAT 93–99
[2024-12-22 06:30] LABS: Hematocrit 46.4 % (41.0-53.0); Hemoglobin 15.8 g/dL (13.5-17.5); Mean Corpuscular Hemoglobin 29.0 pg (28.0-32.0); Mean Corpuscular Volume 85.1 fL (80.0-100.0); Nucleated Red Blood Cells % 0.1 %
[2024-12-22 06:47] LABS: Alanine Aminotransferase 13 U/L (7-40); Albumin 4.8 g/dL (3.2-4.8); Alkaline Phosphatase 99 U/L (46-116); Anion Gap 11 (5-15); BUN/Creatinine Ratio 15.2 (10.0-20.0); Bilirubin, Total 0.8 mg/dL (0.2-1.0); Blood Urea Nitrogen 15 mg/dL (9-23); Calcium 9.2 mg/dL (8.7-10.4); Carbon Dioxide 27 mmol/L (20-31); Chloride 105 mmol/L (98-107); Glucose 87 mg/dL (74-106); Potassium 4.2 mmol/L (3.5-5.1); Sodium 143 mmol/L (136-145); Total Protein 6.9 g/dL (5.7-8.2)
[2024-12-22] MEDS: HYDROmorphone HCL 2 MG/ML VL/or syr IV PRN (07:04)
[2024-12-22] MEDS: REGADENOSON 0.4 MG/5 ML SYRG IV ONE ×2 (10:00→10:01)
[2024-12-22] MEDS: DAPAGLIFLOZIN 5 MG PO SCH (10:00)
[2024-12-22] MEDS: CARVEDILOL 3.125 MG TAB PO SCH (10:36)
[2024-12-22] MEDS: ENOXAPARIN SOD 40 MG/0.4 ML SYRINGE SC SCH (10:37)
[2024-12-22] MEDS: TAMSULOSIN HYDROCHLORIDE 0.4 MG CAP PO SCH (10:37)
--- NOTE | 2024-12-22 12:07 | DVHPN2 ---
Subjective The patient is seen and examined at bedside. Continuing to have chest pain. Reviewed: Care Plan, H&P, Labs, Medications, Previous Orders, Radiology Changes from previous H/P or p: No Changes Objective Vitals Vital Signs Date Time Temp Pulse Resp B/P (MAP) Pulse Ox O2 Delivery O2 Flow Rate FiO2 12/22/24 10:36 62 127/65 12/22/24 09:00 98.0 17 94 98.0 12/22/24 08:00 Room Air* 0 21 Intake/Output Intake and Output 12/22/24 07:00 Intake Total 0 ml Balance 0 ml Intake Oral 0 ml General Appearance: Alert, Oriented X3, Cooperative, No acute distress HEENT: Atraumatic, PERRLA, EOMI, Mucous membr. moist/pink Neck: Supple Lungs: Clear to auscultation, Normal air movement Cardiovascular: Regular rate, Normal S1, Normal S2, No murmurs, Gallops, Rubs Abdomen: Normal bowel sounds, Soft, No tenderness Neuro: Cranial nerves 3-12 NL Psych/Mental Status: Mental status NL Medications Current Medications Medications Dose Ordered Sig/Cady Route Start Time Stop Time Status Last Admin Dose Admin Carvedilol 3.125 mg DAILY PO 12/22/24 10:00 12/22/24 10:36 3.125 MG Famotidine 20 mg BID PO 12/21/24 22:00 12/22/24 10:37 20 MG Tamsulosin HCl 0.4 mg DAILY PO 12/22/24 10:00 12/22/24 10:37 0.4 MG Patient Own Medication 5 mg DAILY PO 12/22/24 10:00 Patient Own Medication 1 tab BID PO 12/21/24 22:00 Sodium Chloride 10 ml Q8HR IV 12/21/24 22:00 12/22/24 05:51 10 ML Docusate Sodium 100 mg BIDPRN PRN PO 12/21/24 15:00 Acetaminophen 650 mg Q6HP PRN PO 12/21/24 15:00 Acetaminophen/ Hydrocodone Bitart 1 tab Q4HP PRN PO 12/21/24 15:00 12/22/24 10:36 1 TAB Hydromorphone HCl 0.5 mg Q4HP PRN IV 12/21/24 15:00 12/22/24 07:04 0.5 MG Ondansetron HCl 4 mg Q4HP PRN IV 12/21/24 15:00 Enoxaparin Sodium 40 mg DAILY SC 12/22/24 10:00 12/22/24 10:37 40 MG Nitroglycerin 0.4 mg Q5MINP PRN SL 12/21/24 15:00 Morphine Sulfate 2 mg Q30M PRN IV 12/21/24 15:00 Laboratory Results Laboratory Tests 12/22/24 05:33 Chemistry Test 12/22/24 05:33 Albumin 4.8 g/dL (3.2-4.8) Calcium Level 9.2 mg/dL (8.7-10.4) Total Protein 6.9 g/dL (5.7-8.2) LFT Test 12/22/24 05:33 Alanine Aminotransferase (ALT) 13 U/L (7-40) Alkaline Phosphatase 99 U/L (46-116) Aspartate Amino Transferase (AST) 25 U/L (13-40) Total Bilirubin 0.8 mg/dL (0.2-1.0) Urinalysis Test 12/21/24 12:31 Urine Color Yellow (Yellow) Urine Clarity Clear (Clear) Urine pH 6.0 (5.0-9.0) Urine Specific [place] 1.019 (1.001-1.035) Urine Protein Trace (Negative) H Urine Ketones 1+ (Negative) H Urine Blood Negative /uL (Negative) Urine Nitrite Negative (Negative) Urine Bilirubin Negative (Negative) Urine Urobilinogen Normal mg/dL (Negative) Urine Leukocyte Esterase Negative /uL (Negative) Urine RBC 2 /hpf (0 - 3) Urine Microscopic WBC 5 /HPF (0-3) H Urine Squamous Epithelial Cells None seen /hpf (<5) Urine Bacteria None seen /hpf (None Seen) Urine Hyaline Casts Few /lpf (0 - 2) Urine Mucus Few (None Seen) Urine Glucose Normal mg/dL (Normal) Labs and/or images reviewed: Labs reviewed by me Assessment/Plan Assessment/Plan Chest pain possible ACS Sinus tach with a RBBB and LPFB Continuing current management Continuing with aspirin Continuing with statin Continuing with beta fany. I am going to start him back on Entresto. He patient said he ran out of the medication at home. Waiting for stress test to be done This medical document was created using an electronic medical record system with [employer] direct computerized dictation system. Although this document has been carefully reviewed, there may still be some phonetic and typographical errors. These areas are purely typographical due to imperfections of the software programs, and do not reflect any compromise in the patient's medical care. Plan discussed with: Patient Date of Service: Dec 22, 2024 Billing Provider: ASCENCION YEN MD Common Visit Codes: [id number] INP/OBS CARE(HIGH) ASCENCION YEN MD Dec 22, 2024 12:07
[2024-12-22] MEDS ORDERED: SERT-206 PO (12:44)
[2024-12-22] MEDS ORDERED: BUPR-413 PO (12:44)
--- NOTE | 2024-12-22 22:05 | DVHPN2 ---
Progress Note - Dictate Date Seen: Dec 22, 2024 Medical Necessity Reason Pt with a Central, PICC or Fol: No Subjective Patient was seen and evaluated in follow up. Patient is complaining of generalized pain. CBC and chemistry are unremarkable. Echocardiogram is ordered. vital signs Vital Sign Date Time Temp Pulse Resp B/P (MAP) Pulse Ox O2 Delivery O2 Flow Rate FiO2 12/22/24 21:52 80 18 125/67 12/22/24 21:00 97.7 97 97.7 12/22/24 20:00 Room Air* 0 21 Total Intake and Output 12/21/24 12/21/24 12/22/24 15:00 23:00 07:00 Intake Total 0 ml Balance 0 ml medications Current Medications Medications Dose Ordered Sig/Cady Route Start Time Stop Time Status Last Admin Dose Admin Carvedilol 3.125 mg DAILY PO 12/22/24 10:00 12/22/24 10:36 3.125 MG Famotidine 20 mg BID PO 12/21/24 22:00 12/22/24 21:24 20 MG Tamsulosin HCl 0.4 mg DAILY PO 12/22/24 10:00 12/22/24 10:37 0.4 MG Patient Own Medication 5 mg DAILY PO 12/22/24 10:00 Patient Own Medication 1 tab BID PO 12/21/24 22:00 Sodium Chloride 10 ml Q8HR IV 12/21/24 22:00 12/22/24 21:41 10 ML Docusate Sodium 100 mg BIDPRN PRN PO 12/21/24 15:00 Acetaminophen 650 mg Q6HP PRN PO 12/21/24 15:00 Acetaminophen/ Hydrocodone Bitart 1 tab Q4HP PRN PO 12/21/24 15:00 12/22/24 21:21 1 TAB Hydromorphone HCl 0.5 mg Q4HP PRN IV 12/21/24 15:00 12/22/24 21:52 0.5 MG Ondansetron HCl 4 mg Q4HP PRN IV 12/21/24 15:00 Enoxaparin Sodium 40 mg DAILY SC 12/22/24 10:00 12/22/24 10:37 40 MG Nitroglycerin 0.4 mg Q5MINP PRN SL 12/21/24 15:00 Morphine Sulfate 2 mg Q30M PRN IV 12/21/24 15:00 Sertraline HCl 25 mg DAILY PO 12/23/24 10:00 Bupropion HCl 50 mg DAILY PO 12/23/24 10:00 objective GENERAL: Alert and oriented x 3. No acute distress. EYES: PERRL, EOMI. Anicteric. HENT: Moist mucous membranes. LUNGS: Clear to auscultation bilaterally. CARDIOVASCULAR: Regular rate and rhythm. ABDOMEN: Soft, nontender and nondistended. EXTREMITIES: No edema. NEUROLOGIC: No focal neurological deficits. SKIN: Warm, dry. laboratory and microbiology Laboratory Tests 12/22/24 05:33 Test 12/22/24 05:33 Range/Units Serum Glucose 87 74-106 mg/dL Problem List Chest pain. Tachycardia. Assessment/Plan Continued all current supportive medical care. Echocardiogram. Dilaudid and [place] for pain management. Coreg. DVT prophylactics. Nitro SL. Additional plan as per the hospital course. Plan discussed with: Patient LEILA WANG MD Dec 22, 2024 22:05
[2024-12-23] VITALS (9 sets, daily range): BP systolic 136–181; BP diastolic 69–120; PULSE 60–106; RESP 16–19; TEMP 97.2–98.2; O2SAT 93–99
[2024-12-23 07:25] LABS: Hematocrit 49.1 % (41.0-53.0); Hemoglobin 17.0 g/dL (13.5-17.5); Mean Corpuscular Hemoglobin 29.4 pg (28.0-32.0); Mean Corpuscular Volume 85.1 fL (80.0-100.0); Nucleated Red Blood Cells % 0.2 %
[2024-12-23 07:44] LABS: Alanine Aminotransferase 18 U/L (7-40); Albumin 5.2 g/dL (3.2-4.8); Alkaline Phosphatase 105 U/L (46-116); Anion Gap 10 (5-15); BUN/Creatinine Ratio 15.6 (10.0-20.0); Bilirubin, Total 0.9 mg/dL (0.2-1.0); Blood Urea Nitrogen 15 mg/dL (9-23); Calcium 9.7 mg/dL (8.7-10.4); Carbon Dioxide 27 mmol/L (20-31); Chloride 105 mmol/L (98-107); Glucose 87 mg/dL (74-106); Potassium 4.1 mmol/L (3.5-5.1); Sodium 142 mmol/L (136-145); Total Protein 7.5 g/dL (5.7-8.2)
[2024-12-23] MEDS: SERTRALINE HCL 50 MG TAB PO SCH (08:48)
--- NOTE | 2024-12-23 11:54 | DVHSR ---
APPROVED REPORT Exam: Nuclear Stress Test BMI: 0 Stress Test Details Stress Test: Pharmacologic stress testing performed using 0.4 mg of regadenoson per 5 mL given IV ov er 10 seconds. HR Resting HR: 72 bpmMax Heart Rate (APMHR): 154.953509 bpm Max HR Achieved: 125 bpmTarget HR (85% APMHR): 130.703931 bpm % of APMHR: 81.17 Recovery HR: 82 bpm BP Resting BP: 152/74 mmHg Recovery BP: 157/91 mmHg ECG Resting ECG: Sinus Rhythm Clinical Reason for Termination: Completed protocol Nurse Comments Recieved pt. from [place]. A/Ox4 on RA. Connected to monitor and storage bin tender, VS stable. PIV flushes well. Re viewed POC. Pt. verbalized understanding of procedure including risks and side effects, agrees for st ress testing. Lexiscan stress test performed per protocol. [place] tech administered Cardiolite. Pt. tolerated well . Pt. stable, no change on exam. VS returned to baseline. Transferred to [place] via wheelchair w/ te ch. Stress ECG Conclusion inferior wall ischemia is noted abnormal study lvef 53% inferior infarct on ecg NM EXAM: Myocardial Perfusion REST/STRESS Imaging Protocol: Rest Tc-99m/Stress Tc-99m 1 day Resting Data Rest SPECT myocardial perfusion imaging was performed in supine position 60 minutes following the int ravenous injection of 9.1 mCi of Tc-99m Sestamibi. Time of rest injection: 07:55 Date: 12/22/2024 Time of rest imagin:55 Date: 12/22/2024 Administration Route: IV Administration Site: Left Arm Pharmacologic Stress Pharmacologic stress test was performed by injecting Regadenoson 0.4 mg IV push followed by the intra venous injection of 33.5 mCi of Tc-99m Sestamibi. Time of stress injection: 10:00 Date: 12/22/2024 Time of stress imagin:00 Date: 12/22/2024 Administration Route: IV Administration Site: Left Arm Gated Stress SPECT was performed 60 minutes after stress injection. The images were gated to evaluate regional wall motion and calculate left ventricular ejection fracti on. Stress only was performed in the Supine position. Nuclear Conclusion Nuclear Findings: positive for ischemia inferior wall ischemia is noted abnormal study lvef 53% inferior infarct on ecg
--- NOTE | 2024-12-23 11:55 | DVHPN2 ---
Subjective The patient is seen and examined at bedside. Still complain of chest pain. Reviewed: Care Plan, H&P, Labs, Medications, Previous Orders, Radiology Changes from previous H/P or p: No Changes Objective Vitals Vital Signs Date Time Temp Pulse Resp B/P (MAP) Pulse Ox O2 Delivery O2 Flow Rate FiO2 12/23/24 09:10 68 181/93 12/23/24 09:00 97.9 17 96 97.9 12/23/24 08:00 Room Air* 0 21 Intake/Output Intake and Output 12/23/24 07:00 Intake Total 740 ml Balance 740 ml Intake Oral 740 ml # Voids 4 # Bowel Movements 1 General Appearance: Alert, Oriented X3, Cooperative, No acute distress HEENT: Atraumatic, PERRLA, EOMI, Mucous membr. moist/pink Neck: Supple Lungs: Clear to auscultation, Normal air movement Cardiovascular: Regular rate, Normal S1, Normal S2, No murmurs, Gallops, Rubs Neuro: Cranial nerves 3-12 NL Psych/Mental Status: Mental status NL Medications Current Medications Medications Dose Ordered Sig/Cady Route Start Time Stop Time Status Last Admin Dose Admin Carvedilol 3.125 mg DAILY PO 12/22/24 10:00 12/23/24 09:10 3.125 MG Famotidine 20 mg BID PO 12/21/24 22:00 12/23/24 09:09 20 MG Tamsulosin HCl 0.4 mg DAILY PO 12/22/24 10:00 12/23/24 09:09 0.4 MG Patient Own Medication 5 mg DAILY PO 12/22/24 10:00 Patient Own Medication 1 tab BID PO 12/21/24 22:00 Sodium Chloride 10 ml Q8HR IV 12/21/24 22:00 12/23/24 06:00 10 ML Docusate Sodium 100 mg BIDPRN PRN PO 12/21/24 15:00 Acetaminophen 650 mg Q6HP PRN PO 12/21/24 15:00 Acetaminophen/ Hydrocodone Bitart 1 tab Q4HP PRN PO 12/21/24 15:00 12/23/24 07:16 1 TAB Hydromorphone HCl 0.5 mg Q4HP PRN IV 12/21/24 15:00 12/23/24 02:54 0.5 MG Ondansetron HCl 4 mg Q4HP PRN IV 12/21/24 15:00 Enoxaparin Sodium 40 mg DAILY SC 12/22/24 10:00 12/23/24 11:17 40 MG Nitroglycerin 0.4 mg Q5MINP PRN SL 12/21/24 15:00 Morphine Sulfate 2 mg Q30M PRN IV 12/21/24 15:00 Sertraline HCl 25 mg DAILY PO 12/23/24 10:00 12/23/24 08:48 25 MG Bupropion HCl 50 mg DAILY PO 12/23/24 10:00 12/23/24 08:48 50 MG Laboratory Results Laboratory Tests 12/23/24 06:56 Chemistry Test 12/23/24 06:56 Albumin 5.2 g/dL (3.2-4.8) H Calcium Level 9.7 mg/dL (8.7-10.4) Total Protein 7.5 g/dL (5.7-8.2) LFT Test 12/23/24 06:56 Alanine Aminotransferase (ALT) 18 U/L (7-40) Alkaline Phosphatase 105 U/L (46-116) Aspartate Amino Transferase (AST) 39 U/L (13-40) Total Bilirubin 0.9 mg/dL (0.2-1.0) Urinalysis Test 12/21/24 12:31 Urine Color Yellow (Yellow) Urine Clarity Clear (Clear) Urine pH 6.0 (5.0-9.0) Urine Specific [place] 1.019 (1.001-1.035) Urine Protein Trace (Negative) H Urine Ketones 1+ (Negative) H Urine Blood Negative /uL (Negative) Urine Nitrite Negative (Negative) Urine Bilirubin Negative (Negative) Urine Urobilinogen Normal mg/dL (Negative) Urine Leukocyte Esterase Negative /uL (Negative) Urine RBC 2 /hpf (0 - 3) Urine Microscopic WBC 5 /HPF (0-3) H Urine Squamous Epithelial Cells None seen /hpf (<5) Urine Bacteria None seen /hpf (None Seen) Urine Hyaline Casts Few /lpf (0 - 2) Urine Mucus Few (None Seen) Urine Glucose Normal mg/dL (Normal) Labs and/or images reviewed: Labs reviewed by me Assessment/Plan Assessment/Plan Chest pain rule out ACS Sinus tach with a RBBB and LPFB Stress test positive for acute inferior ischemia Continuing current management Continuing with aspirin Continuing with statin Continuing with beta fany. I am going to start him back on Entresto. He patient said he ran out of the medication at home. Per brim curler, Dr. Timi Laura input Plan discussed with: Patient My Orders Orders - ASCENCION YEN MD Procedure Category Date Status Time Sertraline Hcl PHA 12/23/24 In Process (Zoloft) 10:00 Bupropion Tablet PHA 12/23/24 In Process (Wellbutrin Tablet) 10:00 Cardiac DIET 12/23/24 Transmitted Diet-2gna,Lofat,Lochol Breakfast Date of Service: Dec 23, 2024 Billing Provider: ASCENCION YEN MD Common Visit Codes: [id number] INP/OBS CARE(HIGH) ASCENCION YEN MD Dec 23, 2024 11:55
[2024-12-23] MEDS: HYDROmorphone HCL 2 MG/ML VL/or syr IV PRN ×2 (12:37→20:22)
[2024-12-23] MEDS: hydrALAZINE HCL 20 MG/ML VL IV PRN (18:03)
--- NOTE | 2024-12-23 22:52 | DVHPN2 ---
Progress Note - Dictate Date Seen: Dec 23, 2024 Medical Necessity Reason Pt with a Central, PICC or Fol: No Subjective Patient was seen and evaluated in follow up. No overnight events. Patient is complaining of generalized pain. CBC and chemistry are WNL. vital signs Vital Sign Date Time Temp Pulse Resp B/P (MAP) Pulse Ox O2 Delivery O2 Flow Rate FiO2 12/23/24 21:00 97.2 91 16 144/69 (94) 98 97.2 12/23/24 20:00 Room Air* 0 21 Total Intake and Output 12/22/24 12/22/24 12/23/24 15:00 23:00 07:00 Intake Total 400 ml 340 ml Balance 400 ml 340 ml medications Current Medications Medications Dose Ordered Sig/Cady Route Start Time Stop Time Status Last Admin Dose Admin Carvedilol 3.125 mg DAILY PO 12/22/24 10:00 12/23/24 09:10 3.125 MG Famotidine 20 mg BID PO 12/21/24 22:00 12/23/24 21:36 20 MG Tamsulosin HCl 0.4 mg DAILY PO 12/22/24 10:00 12/23/24 09:09 0.4 MG Patient Own Medication 5 mg DAILY PO 12/22/24 10:00 Patient Own Medication 1 tab BID PO 12/21/24 22:00 Sodium Chloride 10 ml Q8HR IV 12/21/24 22:00 12/23/24 14:36 10 ML Docusate Sodium 100 mg BIDPRN PRN PO 12/21/24 15:00 Acetaminophen 650 mg Q6HP PRN PO 12/21/24 15:00 Acetaminophen/ Hydrocodone Bitart 1 tab Q4HP PRN PO 12/21/24 15:00 Hold 12/23/24 07:16 1 TAB Ondansetron HCl 4 mg Q4HP PRN IV 12/21/24 15:00 Enoxaparin Sodium 40 mg DAILY SC 12/22/24 10:00 12/23/24 11:17 40 MG Nitroglycerin 0.4 mg Q5MINP PRN SL 12/21/24 15:00 Morphine Sulfate 2 mg Q30M PRN IV 12/21/24 15:00 Sertraline HCl 25 mg DAILY PO 12/23/24 10:00 12/23/24 08:48 25 MG Bupropion HCl 50 mg DAILY PO 12/23/24 10:00 12/23/24 08:48 50 MG Hydromorphone HCl 1 mg Q4HPRN PRN IV 12/23/24 12:45 12/23/24 20:22 1 MG Hydralazine HCl 10 mg Q6HP PRN IV 12/23/24 17:45 12/23/24 18:03 10 MG objective GENERAL: Alert and oriented x 3. No acute distress. EYES: PERRL, EOMI. Anicteric. HENT: Moist mucous membranes. LUNGS: Clear to auscultation bilaterally. CARDIOVASCULAR: Regular rate and rhythm. ABDOMEN: Soft, nontender and nondistended. EXTREMITIES: No edema. NEUROLOGIC: No focal neurological deficits. SKIN: Warm, dry. laboratory and microbiology Laboratory Tests 12/23/24 06:56 Test 12/23/24 06:56 Range/Units Serum Glucose 87 74-106 mg/dL Problem List Chest pain. Tachycardia. Assessment/Plan Continued all current supportive medical care. Coreg. DVT prophylactics. Dilaudid and [place] for pain management. Nitro SL. Additional plan as per the hospital course. Plan discussed with: Patient LEILA WANG MD Dec 23, 2024 22:52
[2024-12-24] VITALS (7 sets, daily range): BP systolic 105–154; BP diastolic 72–95; PULSE 65–92; RESP 16–19; TEMP 96.3–98.3; O2SAT 95–98
[2024-12-24 06:46] LABS: Hematocrit 47.9 % (41.0-53.0); Hemoglobin 16.9 g/dL (13.5-17.5); Mean Corpuscular Hemoglobin 29.6 pg (28.0-32.0); Mean Corpuscular Volume 83.9 fL (80.0-100.0); Nucleated Red Blood Cells % 0.1 %
[2024-12-24 06:59] LABS: Alanine Aminotransferase 21 U/L (7-40); Alkaline Phosphatase 103 U/L (46-116); Anion Gap 12 (5-15); BUN/Creatinine Ratio 13.3 (10.0-20.0); Blood Urea Nitrogen 13 mg/dL (9-23); Calcium 9.5 mg/dL (8.7-10.4); Carbon Dioxide 23 mmol/L (20-31); Chloride 105 mmol/L (98-107); Glucose 87 mg/dL (74-106); Potassium 4.0 mmol/L (3.5-5.1); Sodium 140 mmol/L (136-145); Total Protein 7.4 g/dL (5.7-8.2)
[2024-12-24 07:00] LABS: Albumin 5.1 g/dL (3.2-4.8); Bilirubin, Total 1.0 mg/dL (0.2-1.0)
[2024-12-24] MEDS: SACUBITRIL-VALSARTAN 24mg/26mg TAB PO SCH (11:09)
--- NOTE | 2024-12-24 12:04 | DVHPN2 ---
Subjective The patient is seen and examined at bedside. No nausea or vomiting today. Continuing to have chest pain. Reviewed: Care Plan, H&P, Labs, Medications, Previous Orders, Radiology Changes from previous H/P or p: No Changes Objective Vitals Vital Signs Date Time Temp Pulse Resp B/P (MAP) Pulse Ox O2 Delivery O2 Flow Rate FiO2 12/24/24 11:46 67 128/29 12/24/24 08:32 98.2 17 98 98.2 12/24/24 08:00 Room Air* 0 21 Intake/Output Intake and Output 12/24/24 07:00 Intake Total 1700 ml Balance 1700 ml Intake Oral 1700 ml # Voids 6 # Bowel Movements 1 General Appearance: Alert, Oriented X3, Cooperative, No acute distress HEENT: Atraumatic, PERRLA, EOMI, Mucous membr. moist/pink Neck: Supple Lungs: Clear to auscultation, Normal air movement Cardiovascular: Regular rate, Normal S1, Normal S2, No murmurs, Gallops, Rubs Abdomen: Normal bowel sounds, Soft, No tenderness Neuro: Cranial nerves 3-12 NL Psych/Mental Status: Mental status NL Medications Current Medications Medications Dose Ordered Sig/Cady Route Start Time Stop Time Status Last Admin Dose Admin Carvedilol 3.125 mg DAILY PO 12/22/24 10:00 12/24/24 10:46 3.125 MG Famotidine 20 mg BID PO 12/21/24 22:00 12/24/24 10:47 20 MG Tamsulosin HCl 0.4 mg DAILY PO 12/22/24 10:00 12/24/24 10:47 0.4 MG Patient Own Medication 5 mg DAILY PO 12/22/24 10:00 Sodium Chloride 10 ml Q8HR IV 12/21/24 22:00 12/24/24 05:38 10 ML Docusate Sodium 100 mg BIDPRN PRN PO 12/21/24 15:00 Acetaminophen 650 mg Q6HP PRN PO 12/21/24 15:00 Acetaminophen/ Hydrocodone Bitart 1 tab Q4HP PRN PO 12/21/24 15:00 Hold 12/23/24 07:16 1 TAB Ondansetron HCl 4 mg Q4HP PRN IV 12/21/24 15:00 Enoxaparin Sodium 40 mg DAILY SC 12/22/24 10:00 12/24/24 10:47 40 MG Nitroglycerin 0.4 mg Q5MINP PRN SL 12/21/24 15:00 Morphine Sulfate 2 mg Q30M PRN IV 12/21/24 15:00 Sertraline HCl 25 mg DAILY PO 12/23/24 10:00 12/24/24 10:00 25 MG Bupropion HCl 50 mg DAILY PO 12/23/24 10:00 12/24/24 10:47 50 MG Hydromorphone HCl 1 mg Q4HPRN PRN IV 12/23/24 12:45 12/24/24 05:32 1 MG Hydralazine HCl 10 mg Q6HP PRN IV 12/23/24 17:45 12/23/24 18:03 10 MG Sacubitril/ Valsartan 2 tab BID PO 12/24/24 11:06 12/24/24 11:09 2 TAB Laboratory Results Laboratory Tests 12/24/24 05:27 Chemistry Test 12/24/24 05:27 Albumin 5.1 g/dL (3.2-4.8) H Calcium Level 9.5 mg/dL (8.7-10.4) Total Protein 7.4 g/dL (5.7-8.2) LFT Test 12/24/24 05:27 Alanine Aminotransferase (ALT) 21 U/L (7-40) Alkaline Phosphatase 103 U/L (46-116) Aspartate Amino Transferase (AST) 43 U/L (13-40) H Total Bilirubin 1.0 mg/dL (0.2-1.0) Urinalysis Test 12/21/24 12:31 Urine Color Yellow (Yellow) Urine Clarity Clear (Clear) Urine pH 6.0 (5.0-9.0) Urine Specific [place] 1.019 (1.001-1.035) Urine Protein Trace (Negative) H Urine Ketones 1+ (Negative) H Urine Blood Negative /uL (Negative) Urine Nitrite Negative (Negative) Urine Bilirubin Negative (Negative) Urine Urobilinogen Normal mg/dL (Negative) Urine Leukocyte Esterase Negative /uL (Negative) Urine RBC 2 /hpf (0 - 3) Urine Microscopic WBC 5 /HPF (0-3) H Urine Squamous Epithelial Cells None seen /hpf (<5) Urine Bacteria None seen /hpf (None Seen) Urine Hyaline Casts Few /lpf (0 - 2) Urine Mucus Few (None Seen) Urine Glucose Normal mg/dL (Normal) Labs and/or images reviewed: Labs reviewed by me Assessment/Plan Assessment/Plan Chest pain rule out ACS Sinus tach with a RBBB and LPFB Stress test positive for acute inferior ischemia Continuing current management Continuing with aspirin Continuing with statin Continuing with beta fany. I am going to start him back on Entresto. He patient said he ran out of the medication at home. Per pipeline engineer, Dr. Timi Laura input Plan discussed with: Patient, Other (RN) My Orders Orders - ASCENCION YEN MD Procedure Category Date Status Time Hydromorphone PHA 12/23/24 In Process Injection (Dilaudid 12:45 Hydralazine Injection PHA 12/23/24 In Process (Apresoline Inject 17:45 Sacubitril-Valsartan PHA 12/24/24 In Process (Entresto 24-26 Mg 11:06 Date of Service: Dec 24, 2024 Billing Provider: ASCENCION YEN MD Common Visit Codes: [id number] INP/OBS CARE(HIGH) ASCENCION YEN MD Dec 24, 2024 12:04
[2024-12-25] VITALS (8 sets, daily range): BP systolic 113–135; BP diastolic 78–94; PULSE 75–102; RESP 15–19; TEMP 97.6–98; O2SAT 93–98
--- NOTE | 2024-12-25 01:37 | DVHPN2 ---
Progress Note - Dictate Date Seen: Dec 24, 2024 Medical Necessity Reason Pt with a Central, PICC or Fol: No Subjective Patient was seen and evaluated in follow up. No overnight events. Patient is complaining of generalized pain. CBC and CMP remain WNL. vital signs Vital Sign Date Time Temp Pulse Resp B/P (MAP) Pulse Ox O2 Delivery O2 Flow Rate FiO2 12/24/24 12:32 96.9 65 17 144/89 (107) 96 96.9 12/24/24 08:00 Room Air* 0 21 Total Intake and Output 12/23/24 12/23/24 12/24/24 15:00 23:00 07:00 Intake Total 900 ml 800 ml Balance 900 ml 800 ml medications Current Medications Medications Dose Ordered Sig/Cady Route Start Time Stop Time Status Last Admin Dose Admin Carvedilol 3.125 mg DAILY PO 12/22/24 10:00 12/24/24 10:46 3.125 MG Famotidine 20 mg BID PO 12/21/24 22:00 12/24/24 10:47 20 MG Tamsulosin HCl 0.4 mg DAILY PO 12/22/24 10:00 12/24/24 10:47 0.4 MG Patient Own Medication 5 mg DAILY PO 12/22/24 10:00 Sodium Chloride 10 ml Q8HR IV 12/21/24 22:00 12/24/24 13:42 10 ML Docusate Sodium 100 mg BIDPRN PRN PO 12/21/24 15:00 Acetaminophen 650 mg Q6HP PRN PO 12/21/24 15:00 Acetaminophen/ Hydrocodone Bitart 1 tab Q4HP PRN PO 12/21/24 15:00 Hold 12/23/24 07:16 1 TAB Ondansetron HCl 4 mg Q4HP PRN IV 12/21/24 15:00 Enoxaparin Sodium 40 mg DAILY SC 12/22/24 10:00 12/24/24 10:47 40 MG Nitroglycerin 0.4 mg Q5MINP PRN SL 12/21/24 15:00 Morphine Sulfate 2 mg Q30M PRN IV 12/21/24 15:00 Sertraline HCl 25 mg DAILY PO 12/23/24 10:00 12/24/24 10:00 25 MG Bupropion HCl 50 mg DAILY PO 12/23/24 10:00 12/24/24 10:47 50 MG Hydromorphone HCl 1 mg Q4HPRN PRN IV 12/23/24 12:45 12/24/24 05:32 1 MG Hydralazine HCl 10 mg Q6HP PRN IV 12/23/24 17:45 12/23/24 18:03 10 MG Sacubitril/ Valsartan 2 tab BID PO 12/24/24 11:06 12/24/24 11:09 2 TAB objective GENERAL: Alert and oriented x 3. No acute distress. EYES: PERRL, EOMI. Anicteric. HENT: Moist mucous membranes. LUNGS: Clear to auscultation bilaterally. CARDIOVASCULAR: Regular rate and rhythm. ABDOMEN: Soft, nontender and nondistended. EXTREMITIES: No edema. NEUROLOGIC: No focal neurological deficits. SKIN: Warm, dry. laboratory and microbiology Laboratory Tests 12/24/24 05:27 Test 12/24/24 05:27 Range/Units Serum Glucose 87 74-106 mg/dL Problem List Chest pain. Tachycardia. Assessment/Plan Continued all current supportive medical care. Entresto. Coreg. DVT prophylactics. Dilaudid for pain management. Nitro SL. Additional plan as per the hospital course. Plan discussed with: Patient LEILA WANG MD Dec 24, 2024 15:01
[2024-12-25 08:18] LABS: Hematocrit 54.7 % (41.0-53.0); Hemoglobin 18.9 g/dL (13.5-17.5); Mean Corpuscular Hemoglobin 29.4 pg (28.0-32.0); Mean Corpuscular Volume 85.2 fL (80.0-100.0); Nucleated Red Blood Cells % 0.8 %
[2024-12-25 08:39] LABS: Alanine Aminotransferase 27 U/L (7-40); Bilirubin, Total 1.0 mg/dL (0.2-1.0)
[2024-12-25 08:40] LABS: Chloride 106 mmol/L (98-107); Potassium 4.1 mmol/L (3.5-5.1)
[2024-12-25 08:41] LABS: Anion Gap 11 (5-15); Sodium 142 mmol/L (136-145)
[2024-12-25 08:43] LABS: Albumin 5.2 g/dL (3.2-4.8); Calcium 9.4 mg/dL (8.7-10.4); Carbon Dioxide 25 mmol/L (20-31)
[2024-12-25 08:49] LABS: Total Protein 8.0 g/dL (5.7-8.2)
[2024-12-25 08:54] LABS: BUN/Creatinine Ratio 9.6 (10.0-20.0); Blood Urea Nitrogen 9 mg/dL (9-23); Glucose 97 mg/dL (74-106)
[2024-12-25 08:55] LABS: Alkaline Phosphatase 112 U/L (46-116)
--- NOTE | 2024-12-25 12:56 | DVHPN2 ---
Subjective The patient is seen and examined at bedside. No nausea or vomiting today. Continuing to have chest pain. Reviewed: Care Plan, H&P, Labs, Medications, Previous Orders, Radiology Changes from previous H/P or p: No Changes Objective Vitals Vital Signs Date Time Temp Pulse Resp B/P (MAP) Pulse Ox O2 Delivery O2 Flow Rate FiO2 12/25/24 09:49 72 110/62 12/25/24 08:20 98.0 16 96 98.0 12/25/24 08:00 Room Air* 0 21 Intake/Output Intake and Output 12/25/24 07:00 Intake Total 1900 ml Balance 1900 ml Intake Oral 1900 ml # Voids 10 # Bowel Movements 4 General Appearance: Alert, Oriented X3, Cooperative, No acute distress HEENT: Atraumatic, PERRLA, EOMI, Mucous membr. moist/pink Neck: Supple Lungs: Clear to auscultation, Normal air movement Cardiovascular: Regular rate, Normal S1, Normal S2, No murmurs, Gallops, Rubs Abdomen: Normal bowel sounds, Soft, No tenderness Neuro: Cranial nerves 3-12 NL Psych/Mental Status: Mental status NL Medications Current Medications Medications Dose Ordered Sig/Cady Route Start Time Stop Time Status Last Admin Dose Admin Carvedilol 3.125 mg DAILY PO 12/22/24 10:00 12/25/24 08:49 3.125 MG Famotidine 20 mg BID PO 12/21/24 22:00 12/25/24 08:50 20 MG Tamsulosin HCl 0.4 mg DAILY PO 12/22/24 10:00 12/25/24 08:49 0.4 MG Patient Own Medication 5 mg DAILY PO 12/22/24 10:00 Sodium Chloride 10 ml Q8HR IV 12/21/24 22:00 12/25/24 05:45 10 ML Docusate Sodium 100 mg BIDPRN PRN PO 12/21/24 15:00 Acetaminophen 650 mg Q6HP PRN PO 12/21/24 15:00 Acetaminophen/ Hydrocodone Bitart 1 tab Q4HP PRN PO 12/21/24 15:00 Hold 12/23/24 07:16 1 TAB Ondansetron HCl 4 mg Q4HP PRN IV 12/21/24 15:00 Enoxaparin Sodium 40 mg DAILY SC 12/22/24 10:00 12/25/24 08:50 40 MG Nitroglycerin 0.4 mg Q5MINP PRN SL 12/21/24 15:00 Morphine Sulfate 2 mg Q30M PRN IV 12/21/24 15:00 Sertraline HCl 25 mg DAILY PO 12/23/24 10:00 12/25/24 08:50 25 MG Bupropion HCl 50 mg DAILY PO 12/23/24 10:00 12/25/24 08:50 50 MG Hydromorphone HCl 1 mg Q4HPRN PRN IV 12/23/24 12:45 12/24/24 21:50 1 MG Hydralazine HCl 10 mg Q6HP PRN IV 12/23/24 17:45 12/23/24 18:03 10 MG Sacubitril/ Valsartan 2 tab BID PO 12/24/24 11:06 12/25/24 08:50 1 TAB Laboratory Results Laboratory Tests 12/25/24 07:23 Chemistry Test 12/25/24 07:23 Albumin 5.2 g/dL (3.2-4.8) H Calcium Level 9.4 mg/dL (8.7-10.4) Total Protein 8.0 g/dL (5.7-8.2) LFT Test 12/25/24 07:23 Alanine Aminotransferase (ALT) 27 U/L (7-40) Alkaline Phosphatase 112 U/L (46-116) Aspartate Amino Transferase (AST) 37 U/L (13-40) Total Bilirubin 1.0 mg/dL (0.2-1.0) Urinalysis Test 12/21/24 12:31 Urine Color Yellow (Yellow) Urine Clarity Clear (Clear) Urine pH 6.0 (5.0-9.0) Urine Specific [place] 1.019 (1.001-1.035) Urine Protein Trace (Negative) H Urine Ketones 1+ (Negative) H Urine Blood Negative /uL (Negative) Urine Nitrite Negative (Negative) Urine Bilirubin Negative (Negative) Urine Urobilinogen Normal mg/dL (Negative) Urine Leukocyte Esterase Negative /uL (Negative) Urine RBC 2 /hpf (0 - 3) Urine Microscopic WBC 5 /HPF (0-3) H Urine Squamous Epithelial Cells None seen /hpf (<5) Urine Bacteria None seen /hpf (None Seen) Urine Hyaline Casts Few /lpf (0 - 2) Urine Mucus Few (None Seen) Urine Glucose Normal mg/dL (Normal) Labs and/or images reviewed: Labs reviewed by me Assessment/Plan Assessment/Plan Chest pain rule out ACS Sinus tach with a RBBB and LPFB Stress test positive for acute inferior ischemia Continuing current management Continuing with aspirin Continuing with statin Continuing with beta fany. I am going to start him back on Entresto. He patient said he ran out of the medication at home. waiting for cardiology in put. This medical document was created using an electronic medical record system with [employer] computerized dictation system. Although this document has been carefully reviewed, there may still be some phonetic and typographical errors. These areas are purely typographical due to imperfections of the software programs, and do not reflect any compromise in the patient's medical care. Plan discussed with: Patient, Other (Dr. Laura's [facility]) Date of Service: Dec 25, 2024 Billing Provider: ASCENCION YEN MD Common Visit Codes: [id number] INP/OBS CARE(HIGH) ASCENCION YEN MD Dec 25, 2024 12:56
--- NOTE | 2024-12-25 17:45 | DVHPN2 ---
Consult Progress Note Subjective Other Systems: Patient denies any cardiac symptoms at time of assessment. Patient upgraded to telemetry monitoring Objective vital signs Vital Sign Date Time Temp Pulse Resp B/P (MAP) Pulse Ox O2 Delivery O2 Flow Rate FiO2 12/25/24 16:49 98.0 102 18 125/94 (104) 97 98.0 12/25/24 08:00 Room Air* 0 21 Total Intake and Output 12/24/24 12/24/24 12/25/24 15:00 23:00 07:00 Intake Total 1400 ml 500 ml Balance 1400 ml 500 ml medications Current Medications Medications Dose Ordered Sig/Cady Route Start Time Stop Time Status Last Admin Dose Admin Carvedilol 3.125 mg DAILY PO 12/22/24 10:00 12/25/24 08:49 3.125 MG Famotidine 20 mg BID PO 12/21/24 22:00 12/25/24 08:50 20 MG Tamsulosin HCl 0.4 mg DAILY PO 12/22/24 10:00 12/25/24 08:49 0.4 MG Patient Own Medication 5 mg DAILY PO 12/22/24 10:00 Sodium Chloride 10 ml Q8HR IV 12/21/24 22:00 12/25/24 05:45 10 ML Docusate Sodium 100 mg BIDPRN PRN PO 12/21/24 15:00 Acetaminophen 650 mg Q6HP PRN PO 12/21/24 15:00 Acetaminophen/ Hydrocodone Bitart 1 tab Q4HP PRN PO 12/21/24 15:00 Hold 12/23/24 07:16 1 TAB Ondansetron HCl 4 mg Q4HP PRN IV 12/21/24 15:00 Nitroglycerin 0.4 mg Q5MINP PRN SL 12/21/24 15:00 Morphine Sulfate 2 mg Q30M PRN IV 12/21/24 15:00 Sertraline HCl 25 mg DAILY PO 12/23/24 10:00 12/25/24 08:50 25 MG Bupropion HCl 50 mg DAILY PO 12/23/24 10:00 12/25/24 08:50 50 MG Hydromorphone HCl 1 mg Q4HPRN PRN IV 12/23/24 12:45 12/24/24 21:50 1 MG Hydralazine HCl 10 mg Q6HP PRN IV 12/23/24 17:45 12/23/24 18:03 10 MG Sacubitril/ Valsartan 2 tab BID PO 12/24/24 11:06 12/25/24 08:50 1 TAB Examination: GENERAL:Normal, LUNGS:Normal, CVS:Normal, NEURO:Normal laboratory and microbiology Laboratory Tests 12/25/24 07:23 Test 12/25/24 07:23 Range/Units Serum Glucose 97 74-106 mg/dL Problem List/Assessment/Plan Problem List/Assessment/Plan Chest pain, rule out coronary artery disease Hypertension Type 2 diabetes mellitus BPH Cannabinoid use We will continue with the following plan/recommendations (Dr. Laura): Previous transthoracic echocardiogram from 08/03/2024 reveals an EF of 60%. The patient underwent a nuclear stress test on this admission which was found to be positive for ischemia.Patient may benefit from coronary angiogram with left heart catheterization. The procedure was discussed with the patient in full detail including risks and benefits. Risks include but are not limited to bleeding, contrast-induced nephropathy, coronary dissection, stroke, and even . The patient understands and is agreeable to undergo the procedure. We will schedule the patient on 12/26/2024. In the meantime, continue with cardiac monitoring and notify Cardiology with any ECG changes. Thank you for allowing us to care for this patient. Please call with any questions or concerns. This medical document was created using an electronic medical record system with voice recognition software and computerized dictation system. Although this document has been carefully reviewed, there might still be some phonetic and typographical errors. Occasional wrong-word or ``sound-alike substitutions may have occurred due to the inherent limitations of voice recognition software. These areas are purely typographical due to imperfections of the software programs and do not reflect any compromise in the patient's medical care. Please read the chart carefully and recognize, using context, where these substitutions have occurred. Plan discussed with: Patient Date of Service: Dec 25, 2024 Billing Provider: TAHIR RUIZ Common Visit Codes: [id number] INP/OBS CARE(HIGH) TAHIR RUIZ Dec 25, 2024 17:45
--- NOTE | 2024-12-25 18:12 | DVH ---
EXAM: XY CHEST TWO VIEWS ROUTINE TECHNIQUE: Two radiographic views of the chest CLINICAL HISTORY: having left cath procedure tomorrow COMPARISON: None Findings/Impression: Frontal and lateral chest radiographs demonstrate no acute osseous or superficial soft tissue abnorma lities. The trachea is midline. The cardiac silhouette and mediastinum are within normal limits. Right costophrenic scarring. No pneumothorax, pleural effusions, or consolidations.
--- NOTE | 2024-12-25 19:51 | DVHPN2 ---
Progress Note - Dictate Date Seen: Dec 25, 2024 Medical Necessity Reason Pt with a Central, PICC or Fol: No Subjective Patient was seen and evaluated in follow up. Patient denies any cardiac symptoms at time of assessment. Patient upgraded to telemetry monitoring. Telemetry reviewed. vital signs Vital Sign Date Time Temp Pulse Resp B/P (MAP) Pulse Ox O2 Delivery O2 Flow Rate FiO2 12/25/24 09:49 72 110/62 12/25/24 08:20 98.0 16 96 98.0 12/25/24 08:00 Room Air* 0 21 Total Intake and Output 12/24/24 12/24/24 12/25/24 15:00 23:00 07:00 Intake Total 1400 ml 500 ml Balance 1400 ml 500 ml medications Current Medications Medications Dose Ordered Sig/Cady Route Start Time Stop Time Status Last Admin Dose Admin Carvedilol 3.125 mg DAILY PO 12/22/24 10:00 12/25/24 08:49 3.125 MG Famotidine 20 mg BID PO 12/21/24 22:00 12/25/24 08:50 20 MG Tamsulosin HCl 0.4 mg DAILY PO 12/22/24 10:00 12/25/24 08:49 0.4 MG Patient Own Medication 5 mg DAILY PO 12/22/24 10:00 Sodium Chloride 10 ml Q8HR IV 12/21/24 22:00 12/25/24 05:45 10 ML Docusate Sodium 100 mg BIDPRN PRN PO 12/21/24 15:00 Acetaminophen 650 mg Q6HP PRN PO 12/21/24 15:00 Acetaminophen/ Hydrocodone Bitart 1 tab Q4HP PRN PO 12/21/24 15:00 Hold 12/23/24 07:16 1 TAB Ondansetron HCl 4 mg Q4HP PRN IV 12/21/24 15:00 Enoxaparin Sodium 40 mg DAILY SC 12/22/24 10:00 12/25/24 08:50 40 MG Nitroglycerin 0.4 mg Q5MINP PRN SL 12/21/24 15:00 Morphine Sulfate 2 mg Q30M PRN IV 12/21/24 15:00 Sertraline HCl 25 mg DAILY PO 12/23/24 10:00 12/25/24 08:50 25 MG Bupropion HCl 50 mg DAILY PO 12/23/24 10:00 12/25/24 08:50 50 MG Hydromorphone HCl 1 mg Q4HPRN PRN IV 12/23/24 12:45 12/24/24 21:50 1 MG Hydralazine HCl 10 mg Q6HP PRN IV 12/23/24 17:45 12/23/24 18:03 10 MG Sacubitril/ Valsartan 2 tab BID PO 12/24/24 11:06 12/25/24 08:50 1 TAB objective GENERAL: Alert and oriented x 3. No acute distress. EYES: PERRL, EOMI. Anicteric. HENT: Moist mucous membranes. LUNGS: Clear to auscultation bilaterally. CARDIOVASCULAR: Regular rate and rhythm. ABDOMEN: Soft, nontender and nondistended. EXTREMITIES: No edema. NEUROLOGIC: No focal neurological deficits. SKIN: Warm, dry. laboratory and microbiology Laboratory Tests 12/25/24 07:23 Test 12/25/24 07:23 Range/Units Serum Glucose 97 74-106 mg/dL Problem List Chest pain, rule out coronary artery disease. Hypertension. Type 2 diabetes mellitus. BPH. Cannabinoid use. Assessment/Plan Continued all current supportive medical care. Patient has been seen by Eda Barnett NP on my behalf, her and I discussed the plan with the patient. Previous transthoracic echocardiogram from 08/03/2024 reveals an EF of 60%. The patient underwent a nuclear stress test on this admission which was found to be positive for ischemia. Patient may benefit from coronary angiogram with left heart catheterization. The procedure was discussed with the patient in full detail including risks and benefits. Risks include but are not limited to bleeding, contrast-induced nephropathy, coronary dissection, stroke, and even . The patient understands and is agreeable to undergo the procedure. We will schedule the patient on 12/26/2024. In the meantime, continue with cardiac monitoring and notify Cardiology with any ECG changes. Additional plan as per the hospital course. Date of Service: Dec 25, 2024 Billing Provider: LEILA WANG Common Visit Codes: [id number] INP/OBS CARE(HIGH) Plan discussed with: Patient LEILA WANG MD Dec 25, 2024 13:10
[2024-12-26] VITALS (9 sets, daily range): BP systolic 106–132; BP diastolic 66–89; PULSE 67–95; RESP 16–18; TEMP 36.9; O2SAT 95–98
[2024-12-26] MEDS: IODIXANOL 320MG/ML 100ML BTL IV ONE (06:49)
[2024-12-26] MEDS: LIDOCAINE 2%HCL (LOCAL ANESTH.) INJ 20ML MDV ONE (07:02)
[2024-12-26] MEDS: ANGIOMAX 250 MG VIAL IV ONE (07:12)
[2024-12-26] MEDS: VERAPAMIL 2.5MG/ML INJ 2ML VIAL IV ONE (07:12)
[2024-12-26] MEDS: SODIUM CHL 0.9% 0 ML ONE (07:13)
[2024-12-26] MEDS: MIDAZOLAM HCL 2MG/2ML 2ml VIAL (1mg/ml) ONE (07:13)
[2024-12-26] MEDS: fentaNYL CITRATE 100 MCG/2 ML VL ONE (07:13)
[2024-12-26 07:19] LABS: Hematocrit 49.5 % (41.0-53.0); Hemoglobin 17.1 g/dL (13.5-17.5); Mean Corpuscular Hemoglobin 29.4 pg (28.0-32.0); Mean Corpuscular Volume 85.2 fL (80.0-100.0); Nucleated Red Blood Cells % 0.1 %
[2024-12-26 07:34] LABS: INR 1.11 (0.9-1.15); Partial Thromboplastin Time 28.6 SEC (24.5-34.5); Prothrombin Time 11.6 sec (9.3-11.8)
[2024-12-26 07:52] LABS: Alanine Aminotransferase 25 U/L (7-40); Albumin 4.7 g/dL (3.2-4.8); Alkaline Phosphatase 107 U/L (46-116); Anion Gap 11 (5-15); BUN/Creatinine Ratio 11.6 (10.0-20.0); Blood Urea Nitrogen 13 mg/dL (9-23); Calcium 9.7 mg/dL (8.7-10.4); Carbon Dioxide 26 mmol/L (20-31); Chloride 104 mmol/L (98-107); Cholesterol 169 mg/dL (< 200); Potassium 4.5 mmol/L (3.5-5.1); Sodium 141 mmol/L (136-145); Total Protein 7.5 g/dL (5.7-8.2); Triglycerides 139 mg/dL (< 150)
[2024-12-26 07:53] LABS: Bilirubin, Total 0.9 mg/dL (0.2-1.0)
--- NOTE | 2024-12-26 08:02 | DVHOP2 ---
Operative Report Operative Report CARDIAC VIOLIN TUTOR PROCEDURE REPORT [place], [place] Date of Service: 12/26/24 Hostel Manager: Gail Arrieta MD PROCEDURES PERFORMED: Coronary angiogram, , conscious sedation administration and supervision, less than 15 minutes; fluoroscopy use and interpretation. PREOPERATIVE DIAGNOSES: Abnormal stress test with CCS class 3 angina, POSTOP DIAGNOSIS: moderate cad DESCRIPTION OF PROCEDURE: The patient or appropriate family signed informed consent understanding the risks, benefits and alternatives of the procedure, they wished to proceed. The patient was brought to the cardiac cathode ray tube assembler in n.p.o. state. The patient was prepped in a sterile fashion. Sedation was used per cardiac cath protocol. I administered 2 mL of 2% lidocaine to the right wrist. With an antegrade front wall puncture. I cannulated the right radial artery and placed a 6-[place] slender. Next, an intra-arterial spasmolytic was administered. Next, a - 5French [place] catheter and XB 3 guide (very upward sloping LM and very tortuos aorta) and were used for coronary angiogram a. At the completion of procedure, all guides and wires were removed, and there were no immediate complications. 4000 U of IV heparin given. FINDINGS: RCA: Moderate vessel off the right sinus of Valsalva, there is no severe flow limiting stenosis. non dominant vessel. LEFT MAIN: large size left main, it bifurcates into LAD and circumflex. no stenosis. CIRCUMFLEX: Moderate caliber vessel coming off the left main with no flow limiting stenosis. mild plaque with LPL coming off distally LAD: LAD is a moderate caliber vessel coming of the left main. 40-50% mid LAD bifurcation stenosis and Diagnoal 2 has 40% stenosis CONCLUSIONS: 1. moderate non critical CAD PLAN: Aggressive risk factor modification and medical management for the patient. GAIL ARRIETA MD Dec 26, 2024 08:02
[2024-12-26] MEDS: HEPARIN SODIUM (PORCINE) 5000 UNITS/ML 1ML VIAL ONE (08:04)
[2024-12-26 08:11] LABS: Glucose 115 mg/dL (74-106); HDL Cholesterol 38 mg/dL (40-59)
--- NOTE | 2024-12-26 12:31 | DVHPN2 ---
Subjective The patient is seen and examined at bedside. No nausea or vomiting today. Continuing to have chest pain. Reviewed: Care Plan, H&P, Labs, Medications, Previous Orders, Radiology Changes from previous H/P or p: No Changes Objective Vitals Vital Signs Date Time Temp Pulse Resp B/P (MAP) Pulse Ox O2 Delivery O2 Flow Rate FiO2 12/26/24 12:24 98.4 95 18 132/89 (103) 95 98.4 12/26/24 08:00 Room Air* 0 21 Intake/Output Intake and Output 12/26/24 07:00 Intake Total 1600 ml Output Total 650 ml Balance 950 ml Intake Oral 1600 ml Output Urine Total 650 ml # Voids 6 # Bowel Movements 1 General Appearance: Alert, Oriented X3, Cooperative, No acute distress HEENT: Atraumatic, PERRLA, EOMI, Mucous membr. moist/pink Neck: Supple Lungs: Clear to auscultation, Normal air movement Cardiovascular: Regular rate, Normal S1, Normal S2, No murmurs, Gallops, Rubs Abdomen: Normal bowel sounds, Soft, No tenderness Neuro: Cranial nerves 3-12 NL Psych/Mental Status: Mental status NL Medications Current Medications Medications Dose Ordered Sig/Cady Route Start Time Stop Time Status Last Admin Dose Admin Carvedilol 3.125 mg DAILY PO 12/22/24 10:00 12/26/24 09:33 3.125 MG Famotidine 20 mg BID PO 12/21/24 22:00 12/26/24 09:35 20 MG Tamsulosin HCl 0.4 mg DAILY PO 12/22/24 10:00 12/26/24 09:34 0.4 MG Patient Own Medication 5 mg DAILY PO 12/22/24 10:00 Sodium Chloride 10 ml Q8HR IV 12/21/24 22:00 12/26/24 05:04 10 ML Docusate Sodium 100 mg BIDPRN PRN PO 12/21/24 15:00 Acetaminophen 650 mg Q6HP PRN PO 12/21/24 15:00 Acetaminophen/ Hydrocodone Bitart 1 tab Q4HP PRN PO 12/21/24 15:00 Hold 12/23/24 07:16 1 TAB Ondansetron HCl 4 mg Q4HP PRN IV 12/21/24 15:00 Nitroglycerin 0.4 mg Q5MINP PRN SL 12/21/24 15:00 Morphine Sulfate 2 mg Q30M PRN IV 12/21/24 15:00 Sertraline HCl 25 mg DAILY PO 12/23/24 10:00 12/26/24 09:34 25 MG Bupropion HCl 50 mg DAILY PO 12/23/24 10:00 12/26/24 09:36 50 MG Hydromorphone HCl 1 mg Q4HPRN PRN IV 12/23/24 12:45 12/26/24 02:47 1 MG Hydralazine HCl 10 mg Q6HP PRN IV 12/23/24 17:45 12/23/24 18:03 10 MG Sacubitril/ Valsartan 2 tab BID PO 12/24/24 11:06 12/26/24 09:34 2 TAB Laboratory Results Laboratory Tests 12/26/24 06:41 Chemistry Test 12/26/24 06:41 Albumin 4.7 g/dL (3.2-4.8) Calcium Level 9.7 mg/dL (8.7-10.4) Total Protein 7.5 g/dL (5.7-8.2) Coagulation Test 12/26/24 06:45 Prothrombin Time 11.6 sec (9.3-11.8) Prothrombin Time INR 1.11 (0.9-1.15) Activated Partial Thromboplast Time 28.6 SEC (24.5-34.5) Lipid panel Test 12/26/24 06:41 Cholesterol Level 169 mg/dL (< 200) HDL Cholesterol 38 mg/dL (40-59) L Triglycerides Level 139 mg/dL (< 150) LFT Test 12/26/24 06:41 Alanine Aminotransferase (ALT) 25 U/L (7-40) Alkaline Phosphatase 107 U/L (46-116) Aspartate Amino Transferase (AST) 26 U/L (13-40) Total Bilirubin 0.9 mg/dL (0.2-1.0) Urinalysis Test 12/21/24 12:31 Urine Color Yellow (Yellow) Urine Clarity Clear (Clear) Urine pH 6.0 (5.0-9.0) Urine Specific [place] 1.019 (1.001-1.035) Urine Protein Trace (Negative) H Urine Ketones 1+ (Negative) H Urine Blood Negative /uL (Negative) Urine Nitrite Negative (Negative) Urine Bilirubin Negative (Negative) Urine Urobilinogen Normal mg/dL (Negative) Urine Leukocyte Esterase Negative /uL (Negative) Urine RBC 2 /hpf (0 - 3) Urine Microscopic WBC 5 /HPF (0-3) H Urine Squamous Epithelial Cells None seen /hpf (<5) Urine Bacteria None seen /hpf (None Seen) Urine Hyaline Casts Few /lpf (0 - 2) Urine Mucus Few (None Seen) Urine Glucose Normal mg/dL (Normal) Assessment/Plan Assessment/Plan Chest pain rule out ACS Sinus tach with a RBBB and LPFB Stress test positive for acute inferior ischemia Continuing current management Continuing with aspirin Continuing with statin Continuing with beta fany. I am going to start him back on Entresto. He patient said he ran out of the medication at home. waiting for cardiology in put. This medical document was created using an electronic medical record system with [employer] computerized dictation system. Although this document has been carefully reviewed, there may still be some phonetic and typographical errors. These areas are purely typographical due to imperfections of the software programs, and do not reflect any compromise in the patient's medical care. ASCENCION YEN MD Dec 26, 2024 12:31
--- NOTE | 2024-12-26 12:32 | DVHDS2 ---
Discharge Summary Date of Admission Dec 21, 2024 at 14:50 Date of Discharge: Dec 26, 2024 Admitting Diagnosis Chest pain rule out ACS Sinus tach with a RBBB and LPFB Labs/Diagnostic Data: Laboratory Results Test 12/26/24 06:45 12/26/24 06:41 12/21/24 12:31 12/21/24 11:55 Prothrombin Time 11.6 sec (9.3-11.8) Prothrombin Time INR 1.11 (0.9-1.15) Activated Partial Thromboplast Time 28.6 SEC (24.5-34.5) White Blood Count 9.1 10^3/uL (4.4-10.8) Red Blood Count 5.81 10^6/uL (4.5-5.90) Hemoglobin 17.1 g/dL (13.5-17.5) Hematocrit 49.5 % (41.0-53.0) Mean Corpuscular Volume 85.2 fL (80.0-100.0) Mean Corpuscular Hemoglobin 29.4 pg (28.0-32.0) Mean Corpuscular Hemoglobin Concent 34.5 g/dL (32.0-36.0) Red Cell Distribution Width 13.3 % (11.8-14.3) Platelet Count 322 10^3/uL (140-450) Mean Platelet Volume 8.3 fL (6.9-10.8) Neutrophils (%) (Auto) 69.4 % (37.0-80.0) Lymphocytes (%) (Auto) 19.9 % (10.0-50.0) Monocytes (%) (Auto) 10.2 % (0.0-12.0) Eosinophils (%) (Auto) 0.0 % (0.0-7.0) Basophils (%) (Auto) 0.5 % (0.0-2.0) Neutrophils # (Auto) 6.3 10 ^3/uL (1.6-8.6) Lymphocytes # (Auto) 1.8 10 ^3/uL (0.4-5.4) Monocytes # (Auto) 0.9 10 ^3/uL (0-1.3) Eosinophils # (Auto) 0 10 ^3/uL (0-0.8) Basophils # (Auto) 0 10 ^3/uL (0-0.2) Nucleated Red Blood Cells 0.1 % Sodium Level 141 mmol/L (136-145) Potassium Level 4.5 mmol/L (3.5-5.1) Chloride Level 104 mmol/L (98-107) Carbon Dioxide Level 26 mmol/L (20-31) Anion Gap 11 (5-15) Blood Urea Nitrogen 13 mg/dL (9-23) Creatinine 1.12 mg/dL (0.700-1.30) Glomerular Filtration Rate Calc 72 mL/min (>90) BUN/Creatinine Ratio 11.6 (10.0-20.0) Serum Glucose 115 mg/dL (74-106) Calcium Level 9.7 mg/dL (8.7-10.4) Total Bilirubin 0.9 mg/dL (0.2-1.0) Aspartate Amino Transferase (AST) 26 U/L (13-40) Alanine Aminotransferase (ALT) 25 U/L (7-40) Alkaline Phosphatase 107 U/L (46-116) Total Protein 7.5 g/dL (5.7-8.2) Albumin 4.7 g/dL (3.2-4.8) Triglycerides Level 139 mg/dL (< 150) Cholesterol Level 169 mg/dL (< 200) LDL Cholesterol 119 mg/dL (< 100) HDL Cholesterol 38 mg/dL (40-59) Urine Color Yellow (Yellow) Urine Clarity Clear (Clear) Urine pH 6.0 (5.0-9.0) Urine Specific [place] 1.019 (1.001-1.035) Urine Protein Trace (Negative) Urine Ketones 1+ (Negative) Urine Blood Negative /uL (Negative) Urine Nitrite Negative (Negative) Urine Bilirubin Negative (Negative) Urine Urobilinogen Normal mg/dL (Negative) Urine Leukocyte Esterase Negative /uL (Negative) Urine RBC 2 /hpf (0 - 3) Urine Microscopic WBC 5 /HPF (0-3) Urine Squamous Epithelial Cells None seen /hpf (<5) Urine Bacteria None seen /hpf (None Seen) Urine Hyaline Casts Few /lpf (0 - 2) Urine Mucus Few (None Seen) Urine Glucose Normal mg/dL (Normal) Urine Opiates Screen Neg (NEGATIVE) Urine Fentanyl Screen Neg (NEGATIVE) Urine Barbiturates Screen Neg (NEGATIVE) Urine Phencyclidine Screen Neg (NEGATIVE) Urine Amphetamines Screen Neg (NEGATIVE) Urine Benzodiazepines Screen Neg (NEGATIVE) Urine Cocaine Screen Neg (NEGATIVE) Urine Cannabinoids Screen Pos (NEGATIVE) Troponin I High Sensitivity < 3 ng/L (</=54) Test 12/21/24 10:48 D-Dimer, Quantitative 0.22 mg/L FEU (0.0-0.49) Magnesium Level 2.0 mg/dL (1.6-2.6) B-Type Natriuretic Peptide 5.88 pg/mL (0-100) Other Laboratory Tests 12/26/24 06:41 Brief Hx & Hospital Course: This is a 64 years old male come to emergency department because he believed to have drug reaction with Wellbutrin. The patient stated that he had a heart beat fast after he takes the medication. He called 911 and come to emergency department. The initial EKG showed ST-elevation FL. the repeat EKG did not show any ST-elevation however showed a right and left bundle branch block. The patient subsequently had a stress test done showed acute inferior ischemia. Cardiac catheterization was done today showed mild stenosis , mild critical Coronary artery disease:RCA: Moderate vessel off the right sinus of Valsalva, there is no severe flow limiting stenosis. non dominant vessel. LEFT MAIN: large size left main, it bifurcates into LAD and circumflex. no stenosis. CIRCUMFLEX: Moderate caliber vessel coming off the left main with no flow limiting stenosis. mild plaque with LPL coming off distally LAD: LAD is a moderate caliber vessel coming of the left main. 40-50% mid LAD bifurcation stenosis and Diagnoal 2 has 40% stenosis Recommend aggressive medical management from agricultural inspector's. I am going to discharge the patient home today. Advised the patient to follow up with primary care physician 1-2 weeks. Follow up with his PCP per schedule. Activity as tolerated. Diet per home diet. Recommend low-salt low-cholesterol diet. Physical exam: HEENT: Normocephalic atraumatic pupils equal react to light and accommodation. Extraocular muscles intact, conjunctiva pink, oropharynx moist, no thrush, no exudate. Lymphatic: No lymphadenopathy Cardiovascular exam: S1, S2 was heard. No murmurs, rubs, gallops Lung: Clear on auscultation bilaterally, no wheeze, rale, rhonchi. GI: Abdominal soft, nondistended, nontenderness, positive bowel sounds. Extremity: No crepitus, cyanosis, edema. Pedal pulses present bilateral. Full range of motion. Skin: Normal turgor, no rash. Psych: Alert, oriented x3. Neurology: No focal deficits, cranial nerve II to XII grossly intact. This medical document was created using an electronic medical record system with [employer] computerized dictation system. Although this document has been carefully reviewed, there may still be some phonetic and typographical errors. These areas are purely typographical due to imperfections of the software programs, and do not reflect any compromise in the patient's medical care. Condition at Discharge: Stable Final Diagnosis/Problems List Chest pain rule out ACS Sinus tach with a RBBB and LPFB Systolic congestive heart failure Stress test positive for acute inferior ischemia Discharge Disposition: Home Discharge Instruct/Medications Scheduled Bupropion Hcl (Wellbutrin Tablet), 50 MG PO DAILY Carvedilol (Carvedilol), 1 TAB PO DAILY Dapagliflozin Propanediol (Farxiga), 5 MG PO DAILY, (Reported) Famotidine (Pepcid Tablet), 1 TAB PO BID Sacubitril-Valsartan (Entresto 49-51 mg), 1 TAB PO BID Sertraline Hcl (Sertraline Hcl), 25 MG PO DAILY, (Reported) Tamsulosin Hcl (Tamsulosin Hcl), 1 CAP PO DAILY, (Reported) Discharge Statement: "Patient was advised to return to the ER or call 911 if any headaches, dizziness, shortness of breath, chest pain, abdominal pain, bleeding, fevers, or worsening of medical condition. Patient was counseled about treatment plan, medications, possible side effects, patientverbalized understanding. All questions were answered to the best of my ability. This discharge took greater then 30 minutes in planning, reviewing documentation, counseling the patient, and discussing with other team members." ASSESSMENT ASSESSMENT Assessment Date of Service: Dec 26, 2024 Billing Provider: ASCENCION YEN MD Common Visit Codes: [id number] DISCH DAY >30min ASCENCION YEN MD Dec 26, 2024 12:32
[2024-12-26] MEDS ORDERED: SACU1TAB7 PO (13:09)
[2024-12-26] MEDS ORDERED: CARV3.1240 PO (13:09)
[2024-12-26] MEDS ORDERED: BUPR-413 PO (13:09)
--- NOTE | 2024-12-26 22:05 | DVHPN2 ---
Progress Note - Dictate Date Seen: Dec 26, 2024 Medical Necessity Reason Pt with a Central, PICC or Fol: No Subjective Patient was seen and evaluated in follow up. Patient has no new complaints at this time. Patient denies any cardiac symptoms. Patient is cardiac stable for discharge. vital signs Vital Sign Date Time Temp Pulse Resp B/P (MAP) Pulse Ox O2 Delivery O2 Flow Rate FiO2 12/26/24 14:22 36.9 72 16 95 12/26/24 12:24 132/89 (103) 12/26/24 08:00 Room Air* 0 21 Total Intake and Output 12/25/24 12/25/24 12/26/24 15:00 23:00 07:00 Intake Total 120 ml 1240 ml 240 ml Output Total 650 ml Balance 120 ml 1240 ml -410 ml objective GENERAL: Alert and oriented x 3. No acute distress. EYES: PERRL, EOMI. Anicteric. HENT: Moist mucous membranes. LUNGS: Clear to auscultation bilaterally. CARDIOVASCULAR: Regular rate and rhythm. ABDOMEN: Soft, nontender and nondistended. EXTREMITIES: No edema. NEUROLOGIC: No focal neurological deficits. SKIN: Warm, dry. laboratory and microbiology Laboratory Tests 12/26/24 06:41 Test 12/26/24 06:41 Range/Units Serum Glucose 115 H 74-106 mg/dL Problem List Chest pain. Hypertension. Type 2 diabetes mellitus. BPH. Cannabinoid use. Assessment/Plan Continued all current supportive medical care. Entresto. Coreg. DVT prophylactics. Dilaudid for pain management. Nitro SL. Additional plan as per the hospital course. Plan discussed with: Patient LEILA WANG MD Dec 26, 2024 17:07
== END 2024-12-26 15:23 | disposition home or self-care (01) | DRG 287 ==
LOC: ER 10:30 → EDBD 10:30 → OVERFLOW 14:50 → WEST WING 22:17
PROVIDERS: ADMIT Internal Medicine; ATTEND Internal Medicine
PROC: B211YZZ Fluoroscopy of Multiple Coronary Arteries using Other Contrast (ICD-10-PCS; principal; 2024-12-26)
DX: I25.10 Atherosclerotic heart disease of native coronary artery without angina pectoris (principal); I50.22 Chronic systolic (congestive) heart failure; I45.2 Bifascicular block; N40.0 Benign prostatic hyperplasia without lower urinary tract symptoms; E11.9 Type 2 diabetes mellitus without complications; F41.9 Anxiety disorder, unspecified; I49.8 Other specified cardiac arrhythmias; I11.0 Hypertensive heart disease with heart failure; I51.3 Intracardiac thrombosis, not elsewhere classified; Z79.899 Other long term (current) drug therapy
CPT/HCPCS: 36415; 71046; 78452; 80053; 80061; 80307; 81001; 83735; 83880; 84484; 85025; 85379; 85610; 85730; 86850; 86900; 86901; 93005; 93017; 93454; 99291; G0378; J2250; Q9967

== ENCOUNTER → 2025-02-27 | Outpatient (CLI) | payer OTHER ==
[~2025-02-27] MED LIST changes: +BUPR-413 PO; +SERT-206 PO
== END | disposition home or self-care (01) ==
LOC: LAB 08:55
PROVIDERS: ATTEND Internal Medicine
DX: Z00.00 Encounter for general adult medical examination without abnormal findings (principal); Z79.899 Other long term (current) drug therapy
CPT/HCPCS: 82274; 84153